=== PATIENT | female | born 1985 | race Caucasian/White ===

== ENCOUNTER → 2018-01-14 12:06 | Outpatient (CLI) | payer OTHER, MEDICAID, SELFPAY ==
--- NOTE | 2018-01-14 12:09 | DI.RAD.S_ITS ---
PROCEDURE: XR ANKLE LT MIN 3V INDICATIONS: left ankle injury TECHNIQUE: 3 views of the ankle were acquired. COMPARISON: None. FINDINGS: Bones: No fractures or dislocations. Ankle mortise is normally aligned. No suspicious bony lesions. Soft tissues: Prominent lateral soft tissue swelling. No tibiotalar joint effusion. Achilles tendon appears normal. IMPRESSION: Lateral swelling, negative for fracture Dictated by: Jose Wood M.D. on 01/14/2018 at 12:28 Approved by: Jose Wood M.D. on 01/14/2018 at 12:29
--- NOTE | 2018-01-14 12:09 | DI.RAD.S_ITS ---
PROCEDURE: XR FOOT LT MIN 3V INDICATIONS: lateral toe bruising and pain TECHNIQUE: 3 views of the foot were acquired. COMPARISON: None. FINDINGS: Bones: No fractures or dislocations. No suspicious bony lesions. Soft tissues: No tibiotalar joint effusion. Achilles tendon appears normal. IMPRESSION: Normal foot Dictated by: Jose Wood M.D. on 01/14/2018 at 12:29 Approved by: Jose Wood M.D. on 01/14/2018 at 12:30
== END ==
PROVIDERS: Family Provider Family Medicine; PCP Family Medicine; Visit Provider Family Medicine
DX: S99.912A Unspecified injury of left ankle, initial encounter (principal)
CPT/HCPCS: 73610; 73630

== ENCOUNTER → 2018-02-08 10:20 | Outpatient (CLI) | payer OTHER, MEDICAID, SELFPAY ==
--- NOTE | 2018-02-08 10:21 | DI.RAD.S_ITS ---
PROCEDURE: XR ELBOW LT MIN 3V INDICATIONS: left elbow pain TECHNIQUE: 3 views of the elbow were acquired. COMPARISON: None. FINDINGS: Bones: No fractures or dislocations. No suspicious bony lesions. Soft tissues: No elbow joint effusion. No suspicious soft tissue calcifications. IMPRESSION: No acute fractures or dislocations. Dictated by: Kj Perez M.D. on 02/08/2018 at 11:25 Approved by: Kj Perez M.D. on 02/08/2018 at 11:25
== END ==
PROVIDERS: Family Provider Family Medicine; PCP Family Medicine; Visit Provider Family Medicine
DX: M25.522 Pain in left elbow (principal)
CPT/HCPCS: 73080

== ENCOUNTER → 2018-04-11 16:05 | Outpatient (CLI) | payer OTHER, MEDICAID, SELFPAY ==
[2018-04-14 14:11] LABS: QuantiFERON TB Positive (Negative)
== END ==
PROVIDERS: Family Provider Family Medicine; PCP Family Medicine; Visit Provider Family Medicine
DX: Z02.1 Encounter for pre-employment examination (principal); Z11.1 Encounter for screening for respiratory tuberculosis
CPT/HCPCS: 36415; 86480

== ENCOUNTER → 2018-04-17 17:01 | Outpatient (CLI) | payer OTHER, MEDICAID, SELFPAY ==
--- NOTE | 2018-04-17 17:03 | DI.RAD.S_ITS ---
PROCEDURE: XR CHEST 2V INDICATIONS: Positive Quantifuron Gold TECHNIQUE: 2 views of the chest were acquired. COMPARISON: [facility], , CHEST 1 VIEW, 08/13/2015, 6:27. FINDINGS: Surgical changes and devices: None. Lungs and pleura: No pleural effusions or pneumothorax. Lungs are clear. Mediastinum: Mediastinal contours are normal. Heart size is normal. Bones and chest wall: No suspicious bony abnormalities. Soft tissues appear unremarkable. IMPRESSION: No acute cardiopulmonary pathology. No radiographic evidence of active TB. Dictated by: Didier Whitten M.D. on 04/17/2018 at 17:18 Approved by: Ddiier Whitten M.D. on 04/17/2018 at 17:19
== END ==
PROVIDERS: Family Provider Family Medicine; PCP Family Medicine; Visit Provider Family Medicine
DX: R76.11 Nonspecific reaction to tuberculin skin test without active tuberculosis (principal)
CPT/HCPCS: 71046

== ENCOUNTER → 2018-05-24 13:55 | Outpatient (CLI) | payer OTHER, MEDICAID, SELFPAY ==
[2018-05-24 18:36] LABS: Hepatitis B Surface Antigen NEGATIVE s/c (NEGATIVE); Rubella Antibody IgG 16.4 IU/mL (>15)
[2018-05-28 15:33] LABS: Rubeola Measles IgG < 25.00 AU/mL (< 25.00)
== END ==
PROVIDERS: PCP Family Medicine; Visit Provider Family Medicine
DX: Z00.00 Encounter for general adult medical examination without abnormal findings (principal)
CPT/HCPCS: 36415; 86735; 86762; 86765; 87340

== ENCOUNTER → 2018-07-26 12:10 | Outpatient (CLI) | payer OTHER, MEDICAID, SELFPAY ==
[2018-07-26 13:33] LABS: Monotest Negative (Negative)
== END ==
PROVIDERS: Family Provider Family Medicine; PCP Family Medicine; Visit Provider Physician Assistant
DX: J02.9 Acute pharyngitis, unspecified (principal)
CPT/HCPCS: 86318; 87070; 87147

== ENCOUNTER 2018-10-22 01:57 | Emergency (ER) | payer OTHER, MEDICAID, SELFPAY ==
[2018-10-22 02:25] VITALS: BP 157/90; PULSE 147; RESP 23; TEMP 38.7; O2SAT 100; BMI 43.5
[2018-10-22 02:30] VITALS: BP 116/60; PULSE 101; RESP 20; O2SAT 100
--- NOTE | 2018-10-22 02:36 | ED_ITS ---
HPI - Arrhythmia/Palpitations General Chief Complaint: Arrhythmia/Palpitations Stated Complaint: 105 temp, svt heart rate 130 bpm Time Seen by Provider: 10/22/18 02:31 Source: patient Mode of arrival: ambulatory Limitations: no limitations History of Present Illness HPI narrative: patient is a artem 32-year-old female who presents with heart palpitations. She has a history of SVT. She previously could not get warm a. She said she was chilled his shivering called multiple blankets on top of her. As she then woke up drenching sweat with fever 105 at home. She did take some Tylenol. She is afebrile now. MD complaint: rapid heart beat Arrhythmia history: SVT Associated symptoms: other ( Fever) Related Data Home Medications Medication Instructions Recorded Confirmed atenolol 25 mg PO BID #0 04/13/17 07/26/18 Previous Rx's Medication Instructions Recorded alprazolam 0 mg PO Q12HP PRN #20 tab 08/15/17 levothyroxine [Synthroid] 50 mcg PO SEE INSTRUCTIONS #90 tab 07/23/18 albuterol sulfate HFA 90 1 inh INHALATION Q4-6H PRN #18 gram 07/26/18 mcg/actuation aerosol inhaler azithromycin 250 mg tablet See Rx Instructions PO .COMPLEX #6 07/26/18 tab metformin 500 mg tablet 500 mg PO BID #180 tab 09/23/18 citalopram 10 mg tablet 10 mg PO QDAY #30 tab 10/16/18 Allergies Allergy/AdvReac Type Severity Reaction Status Date / Time amoxicillin AdvReac does not Verified 07/26/18 11:15 work Review of Systems Review of Systems ROS Unobtainable: All systems reviewed & are unremarkable except as noted in HPI and below Constitutional Reports body ache(s), Reports chills, Reports fever(s) and Denies frequent falls ENT Ears, Nose, Mouth, and Throat: Denies change in voice, Denies dizziness, Denies neck pain and Denies sore throat Cardiovascular Denies chest pain, Reports rapid heart rate, Denies lightheadedness, Denies palpitations, Denies dyspnea, Denies dyspnea on exertion and Denies orthopnea Respiratory Denies cough, Denies dyspnea, Denies dyspnea on exertion and Denies wheezing Gastrointestinal Gastrointestinal: Denies abdominal pain, Denies change in bowel habits, Denies diarrhea, Denies nausea and Denies vomiting Musculoskeletal Denies neck pain and Denies numbness Integumentary/Breasts Denies pruritus, Denies erythema, Denies rash and Denies wounds Neurologic Denies behavioral changes, Denies confusion, Denies dizziness, Denies frequent falls and Denies numbness Psychiatric Denies behavioral changes and Denies confusion Endocrine Denies palpitations Allergic/Immunologic Denies wheezing FOR[facility] Medical History Inversion sprain of left ankle (Acute) Diabetes mellitus (Chronic) Hypertension (Chronic) Near syncope (Chronic) Palpitations (Chronic) Wheezing (Chronic) Ktblk-Jufzcqyga-Owwfg (WPW) syndrome (Chronic) Surgical History History of third molar tooth extraction Status post laparoscopic cholecystectomy Family History Child Autism Social History Smoking Status: Never smoker alcohol intake: never Family History Child Autism Social History Smoking Status: Never smoker alcohol intake: 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 RESPIRATORY: Breath sounds equal bilaterally, no wheezes rales or rhonchi. ABDOMEN: Soft, nontender. Normoactive bowel sounds all 4 quadrants. No guarding or rebound. EXTREMITIES: Normal range of motion, no clubbing or edema. Neurovascularly intact NEUROLOGICAL: Alert and oriented x4.Normal gait and speech. Cranial nerves II through XII grossly intact. SKIN: Warm, dry, no laceration, no petechiae, no rashes or lesions. Course Orders Ordered: ED Orders 10/22/18 EKG-12 Lead Stat 10/22/18 02:15 Complete Blood Count AUTO DIFF Stat Comprehensive Metabolic Panel Stat Lactate (Lactic Acid) Stat 10/22/18 02:31 EKG-12 Lead Stat 10/22/18 02:37 Influenza A and B by PCR Rapid Stat 10/22/18 03:57 Urine Microscopic Stat Discontinued Medications Sodium Chloride (Normal Saline 0.9%) 1,000 mls @ 1,000 mls/hr IV CONT BOBBY Last Infusion: 10/22/18 04:45 Dose: 0 mls/hr Admin: 10/22/18 02:45 Dose: 1,000 mls/hr Vital Signs - 8 hr 10/22/18 02:25 10/22/18 02:30 10/22/18 02:40 Temperature 101.6 F H Pulse Rate 147 H 101 H 105 H Respiratory Rate 23 20 19 Blood Pressure 157/90 H Blood Pressure [Right Arm] 116/60 116/60 Pulse Oximetry 100 100 98 10/22/18 03:26 10/22/18 03:39 10/22/18 04:50 Temperature 99.9 F H Pulse Rate 102 H 102 H Respiratory Rate 19 20 Blood Pressure 108/60 Blood Pressure [Right Arm] 112/65 Pulse Oximetry 100 100 MDM - Arrhythmia/Palpitations Lab Data Attestation: I reviewed the patient's lab results. Result diagrams: 10/22/18 02:15 10/22/18 02:15 Lab Results 10/22/18 10/22/18 10/22/18 Range/Units 02:15 02:15 02:15 WBC 6.1 (4.5-11.0) X10^3/uL RBC 4.52 (4.0-5.2) X10^6/uL Hgb 12.9 (12.0-16.0) g/dL Hct 38.7 (36-46) % MCV 85.6 (80-100) fL MCH 28.5 (26-34) PG MCHC 33.2 (30-36) % RDW 13.5 (11.6-14.8) % Plt Count 215 (150-400) X10^3/uL Neut % (Auto) 83.5 H (50-75) % Lymph % (Auto) 9.0 L (25-40) % Cache % (Auto) 6.3 (3-14) % Eos % (Auto) 0.7 L (2-4) % Baso % (Auto) 0.5 (0-2) % Neut # (Auto) 5100 (3482-3066) /uL Lymph # (Auto) 600 L (0645-3034) /uL Cache # (Auto) 400 (0-900) /uL Eos # (Auto) 0 (0-450) /uL Baso # (Auto) 0 (0-100) /uL Sodium 134 L (137-145) mmol/L Potassium 4.1 (3.4-5.1) mmol/L Chloride 101 (98-107) mmol/L Carbon Dioxide 24 (22-32) mmol/L BUN 8 (7-17) mg/dL Creatinine 0.70 (0.52-1.04) mg/dL Estimated GFR > 60.0 (>60) mL/min BUN/Creatinine Ratio 11.4 (6-22) Glucose 126 H (70-100) mg/dL Lactate 1.9 (0.7-2.1) mmol/L Calcium 9.0 (8.4-10.2) mg/dL Total Bilirubin 0.5 (0.2-1.3) mg/dL AST 35 (14-36) IU/L ALT 28 (9-52) IU/L Alkaline Phosphatase 68 (38-126) U/L Total Protein 7.5 (6.3-8.2) g/dL Albumin 4.2 (3.5-5.0) g/dL Globulin 3.3 (1.7-4.1) g/dL Albumin/Globulin Ratio 1.3 (1.0-2.8) Urine RBC (0-5/HPF) Urine WBC (0-5/HPF) Ur Squamous Epith Cells Urine Bacteria (None) Ur Culture Indicated? Influenza A & B (PCR) (Negative) 10/22/18 10/22/18 Range/Units 02:37 03:57 WBC (4.5-11.0) X10^3/uL RBC (4.0-5.2) X10^6/uL Hgb (12.0-16.0) g/dL Hct (36-46) % MCV (80-100) fL MCH (26-34) PG MCHC (30-36) % RDW (11.6-14.8) % Plt Count (150-400) X10^3/uL Neut % (Auto) (50-75) % Lymph % (Auto) (25-40) % Cache % (Auto) (3-14) % Eos % (Auto) (2-4) % Baso % (Auto) (0-2) % Neut # (Auto) (0878-2020) /uL Lymph # (Auto) (8995-9033) /uL Cache # (Auto) (0-900) /uL Eos # (Auto) (0-450) /uL Baso # (Auto) (0-100) /uL Sodium (137-145) mmol/L Potassium (3.4-5.1) mmol/L Chloride (98-107) mmol/L Carbon Dioxide (22-32) mmol/L BUN (7-17) mg/dL Creatinine (0.52-1.04) mg/dL Estimated GFR (>60) mL/min BUN/Creatinine Ratio (6-22) Glucose (70-100) mg/dL Lactate (0.7-2.1) mmol/L Calcium (8.4-10.2) mg/dL Total Bilirubin (0.2-1.3) mg/dL AST (14-36) IU/L ALT (9-52) IU/L Alkaline Phosphatase (38-126) U/L Total Protein (6.3-8.2) g/dL Albumin (3.5-5.0) g/dL Globulin (1.7-4.1) g/dL Albumin/Globulin Ratio (1.0-2.8) Urine RBC 1-5/hpf (0-5/HPF) Urine WBC 0-1/hpf (0-5/HPF) Ur Squamous Epith Cells 1-5 /hpf Urine Bacteria Few (2-10) H (None) Ur Culture Indicated? Cult not indicated Influenza A & B (PCR) Negative (Negative) Point of Care Testing Test Results Negative Urine Dip Bedside Urine Glucose Negative Bedside Urine Bilirubin - Negative Bedside Urine Ketone - Negative Urine Specific [place]iskell 1.010 Bedside Urine Occult Blood + Bedside Urine pH 8.5 Bedside Urine Protein +/- 15 Bedside Urine Urobilinogen - Negative Bedside Urine Nitrite - Negative Bedside Urine Leukocytes - Negative Esterase MDM Narrative Medical decision making narrative: At this time no source of infection. Patient is not in SVT. Heart rate is much improved With fever control and IV fluids. She does not appear septic. Lactic acid is less than 2. she has no specific signs or symptoms except being cold. Discharge Plan Departure Patient Disposition: Home Clinical Impression: Acute viral syndrome Discharge Date/Time: 10/22/18 04:52 Interventions: ED Discharge Assessment Last Done: 10/22/18 04:50 Activity Restrictions/Additional Instructions: *You have been diagnosed with Viral syndrome *What to do: at this time in no source of infection. No indication for antibiotics. No SVT present. recommend fever control in the fluid increasing fluid intake *Continue to take medications as directed *Follow up with your primary care provider in 2-3 days *Return to ER if you should have heart palpitations fever not controlled or any new, worsening or concerning symptoms Prescriptions: No Action azithromycin 250 mg tablet See Rx Instructions PO .COMPLEX Qty: 6 RF: 0 albuterol sulfate 90 mcg/actuation HFA aerosol inhaler 1 inh INHALATION Q4-6H PRN (Reason: shortness of breath) Qty: 18 RF: 0 atenolol 25 MG tablet 25 mg PO BID Qty: 0 RF: 0 alprazolam 0.25 MG tablet PO Q12HP PRNQty: 20 RF: 2 levothyroxine [Synthroid] 50 mcg tablet 50 mcg PO SEE INSTRUCTIONS Qty: 90 RF: 0 metformin [Glucophage] 500 mg tablet 500 mg PO BID Qty: 180 RF: 3 citalopram [Celexa] 10 mg tablet 10 mg PO QDAY Qty: 30 RF: 2 Referrals: Jelena Borden DO [Primary Care Provider] -
[2018-10-22 02:38] LABS: Add Manual Diff / Slide Review NO; Basophils Absolute Auto 0 /uL (0-100); Basophils Percent Auto 0.5 % (0-2); Eosinophils Absolute Auto 0 /uL (0-450); Eosinophils Percent Auto 0.7 % (2-4); Hematocrit 38.7 % (36-46); Hemoglobin 12.9 g/dL (12.0-16.0); Lymphocytes Absolute Auto 600 /uL (1100-4500); Mean Corpuscular HGB Conc 33.2 % (30-36); Mean Corpuscular Hemoglobin 28.5 PG (26-34); Mean Corpuscular Volume 85.6 fL (80-100); Monocytes Absolute Auto 400 /uL (0-900); Monocytes Percent Auto 6.3 % (3-14); Neutrophils Absolute Auto 5100 /uL (1500-7000); Neutrophils Percent Auto 83.5 % (50-75); Platelet Count 215 X10^3/uL (150-400); Red Blood Cell Count 4.52 X10^6/uL (4.0-5.2); Red Cell Distribution Width 13.5 % (11.6-14.8); White Blood Cell Count 6.1 X10^3/uL (4.5-11.0)
[2018-10-22 02:40] VITALS: BP 116/60; PULSE 105; RESP 19; O2SAT 98
[2018-10-22] MEDS: SODIUM CHLORIDE 0.9% 1,000 ML 1000 ML IV (02:45)
[2018-10-22 02:50] LABS: Lactate (Lactic Acid) 1.9 mmol/L (0.7-2.1)
[2018-10-22 02:51] LABS: Alanine Aminotransferase 28 IU/L (9-52); Albumin 4.2 g/dL (3.5-5.0); Albumin Globulin Ratio 1.3 (1.0-2.8); Alkaline Phosphatase 68 U/L (38-126); Aspartate Aminotransferase 35 IU/L (14-36); BUN Creatinine Ratio 11.4 (6-22); Bilirubin Total 0.5 mg/dL (0.2-1.3); Blood Urea Nitrogen 8 mg/dL (7-17); Carbon Dioxide 24 mmol/L (22-32); Chloride 101 mmol/L (98-107); Estimated Glomerular Filt Rate > 60.0 mL/min (>60); Globulin 3.3 g/dL (1.7-4.1); Glucose 126 mg/dL (70-100); HEMOLYSIS < 15 (0-50); Potassium 4.1 mmol/L (3.4-5.1); Sodium 134 mmol/L (137-145); Total Protein 7.5 g/dL (6.3-8.2)
[2018-10-22 02:56] LABS: Influenza A and B by PCR Rapid Negative (Negative)
[2018-10-22 03:26] VITALS: BP 112/65; PULSE 102; RESP 19; O2SAT 100
[2018-10-22 03:39] VITALS: TEMP 37.7
[2018-10-22 04:26] LABS: Bacteria Urine Few (2-10); Culture Indicated Urine Cult Not Indicated; RBC Urine 1-5/HPF (0-5/HPF); Squamous Epithelial Cell Urine 1-5 /HPF; WBC Urine 0-1/HPF (0-5/HPF)
[2018-10-22 04:50] VITALS: BP 108/60; PULSE 102; RESP 20; O2SAT 100
== END 2018-10-22 04:52 | disposition home or self-care (01) ==
PROVIDERS: Emergency Provider Emergency Medicine; Family Provider Family Medicine; PCP Family Medicine
DX: B34.9 Viral infection, unspecified (principal); R00.2 Palpitations
CPT/HCPCS: 36591; 80053; 81003; 81015; 81025; 83605; 85025; 87400; 93005; 93041; 96360; 96361; 99283; 99284

== ENCOUNTER → 2018-11-30 08:47 | Outpatient (CLI) | payer OTHER, MEDICAID, SELFPAY ==
[2018-11-30 09:42] LABS: Add Manual Diff / Slide Review NO; Basophils Absolute Auto 0 /uL (0-100); Basophils Percent Auto 0.6 % (0-2); Eosinophils Absolute Auto 400 /uL (0-450); Eosinophils Percent Auto 5.8 % (2-4); Hematocrit 36.3 % (36-46); Hemoglobin 12.3 g/dL (12.0-16.0); Lymphocytes Absolute Auto 2000 /uL (1100-4500); Lymphocytes Percent Auto 31.6 % (25-40); Mean Corpuscular HGB Conc 33.8 % (30-36); Mean Corpuscular Hemoglobin 28.8 PG (26-34); Mean Corpuscular Volume 85.4 fL (80-100); Monocytes Absolute Auto 400 /uL (0-900); Monocytes Percent Auto 6.3 % (3-14); Neutrophils Absolute Auto 3500 /uL (1500-7000); Neutrophils Percent Auto 55.7 % (50-75); Platelet Count 255 X10^3/uL (150-400); Red Blood Cell Count 4.25 X10^6/uL (4.0-5.2); Red Cell Distribution Width 13.6 % (11.6-14.8); White Blood Cell Count 6.3 X10^3/uL (4.5-11.0)
[2018-11-30 09:46] LABS: Alanine Aminotransferase 18 IU/L (9-52); Albumin 4.1 g/dL (3.5-5.0); Albumin Globulin Ratio 1.4 (1.0-2.8); Alkaline Phosphatase 54 U/L (38-126); Aspartate Aminotransferase 18 IU/L (14-36); BUN Creatinine Ratio 23.3 (6-22); Bilirubin Total 0.3 mg/dL (0.2-1.3); Blood Urea Nitrogen 14 mg/dL (7-17); Carbon Dioxide 23 mmol/L (22-32); Chloride 104 mmol/L (98-107); Cholesterol 201 mg/dL (140-199); Estimated Glomerular Filt Rate > 60.0 mL/min (>60); Globulin 2.9 g/dL (1.7-4.1); Glucose 94 mg/dL (70-100); HDL Cholesterol 42 mg/dL (40-60); HEMOLYSIS < 15 (0-50); LDL Cholesterol Calculated 124 mg/dL (<100); Potassium 4.5 mmol/L (3.4-5.1); Sodium 136 mmol/L (137-145); Triglycerides 174 mg/dL (35-150)
[2018-11-30 09:59] LABS: Hemoglobin A1C% w Est Avg Glu 5.5 % (4.0-6.0)
[2018-11-30 11:36] LABS: TSH w/ Reflex to FT4 2.16 uIU/mL (0.47-4.68)
[2018-12-03 15:52] LABS: Insulin Level Total 11.2 uIU/mL (2.0-19.6)
== END ==
PROVIDERS: Family Provider Family Medicine; PCP Family Medicine; Visit Provider Family Medicine
DX: E03.9 Hypothyroidism, unspecified (principal); E66.9 Obesity, unspecified; I49.3 Ventricular premature depolarization; I10 Essential (primary) hypertension; R73.9 Hyperglycemia, unspecified; Z13.1 Encounter for screening for diabetes mellitus; Z13.220 Encounter for screening for lipoid disorders
CPT/HCPCS: 36415; 80053; 80061; 83036; 83525; 84443; 85025

== ENCOUNTER → 2018-12-02 09:43 | Outpatient (CLI) | payer OTHER, MEDICAID, SELFPAY ==
[2018-12-02 11:56] LABS: Cortisol AM (Before 10AM) 7.26 ug/dL (4.46-22.7)
[2018-12-02 19:54] LABS: Cortisol PM (After 5PM) 4.08 ug/dL (1.7-14.1)
== END ==
PROVIDERS: PCP Family Medicine; Visit Provider Family Medicine
DX: E03.9 Hypothyroidism, unspecified (principal); I10 Essential (primary) hypertension; I49.3 Ventricular premature depolarization; R73.9 Hyperglycemia, unspecified; Z13.1 Encounter for screening for diabetes mellitus; Z13.220 Encounter for screening for lipoid disorders; E66.9 Obesity, unspecified
CPT/HCPCS: 36415; 82533

== ENCOUNTER → 2019-07-14 12:11 | Outpatient (CLI) | payer OTHER, MEDICAID, SELFPAY | PROVIDERS: PCP Family Medicine | DX: Z23 Encounter for immunization (principal) | CPT/HCPCS: 90471; 90686 ==

== ENCOUNTER → 2019-07-15 17:24 | Outpatient (CLI) | payer OTHER, MEDICAID, SELFPAY ==
[2019-07-15 18:16] LABS: Add Manual Diff / Slide Review NO; Basophils Absolute Auto 0 /uL (0-100); Basophils Percent Auto 0.6 % (0-2); Eosinophils Absolute Auto 400 /uL (0-450); Eosinophils Percent Auto 5.3 % (2-4); Hematocrit 38.3 % (36-46); Hemoglobin 12.7 g/dL (12.0-16.0); Lymphocytes Absolute Auto 2500 /uL (1100-4500); Lymphocytes Percent Auto 36.3 % (25-40); Mean Corpuscular Hemoglobin 28.7 PG (26-34); Monocytes Absolute Auto 400 /uL (0-900); Monocytes Percent Auto 5.8 % (3-14); Neutrophils Absolute Auto 3600 /uL (1500-7000); Platelet Count 291 X10^3/uL (150-400); Red Cell Distribution Width 13.9 % (11.6-14.8); White Blood Cell Count 6.9 X10^3/uL (4.5-11.0)
[2019-07-15 18:45] LABS: Free T3, Triiodothyronine Free 3.37 pg/mL (2.77-5.27); Free T4, Direct Thyroxine 1.04 ng/dL (0.78-2.19)
== END ==
PROVIDERS: Visit Provider Family Medicine
DX: E03.9 Hypothyroidism, unspecified (principal); E66.9 Obesity, unspecified; I10 Essential (primary) hypertension; I49.3 Ventricular premature depolarization
CPT/HCPCS: 36415; 84439; 84443; 84481; 85025

== ENCOUNTER → 2020-05-27 15:00 | Outpatient (CLI) | payer OTHER, MEDICAID, SELFPAY ==
[2020-05-28 08:50] LABS: COVID19 Sendout Not Detected (Not Detect)
== END ==
PROVIDERS: PCP Family Medicine; Visit Provider Physician Assistant
DX: Z11.59 Encounter for screening for other viral diseases (principal)
CPT/HCPCS: 87635

== ENCOUNTER → 2020-07-14 14:14 | Outpatient (CLI) | payer OTHER, SELFPAY ==
--- NOTE | 2020-07-14 15:30 | DI.CT.S_ITS ---
PROCEDURE: CT ABDOMEN PELVIS W CON INDICATIONS: LLQ pain and bloody stool TECHNIQUE: After the administration of oral and intravenous contrast, 5 mm thick sections acquired from the diaphragms to the symphysis. 5 mm thick coronal and sagittal reformats were performed. For radiation dose reduction, the following was used: automated exposure control, adjustment of mA and/or kV according to patient size. COMPARISON: [facility], CT, ABDOMEN/PELVIS WITH CONTRAST, 11/20/2012, 13:32. FINDINGS: Image quality: Excellent. ABDOMEN: Lung bases: Lung bases are clear. Heart size is normal. Solid organs: Liver is normal in size and enhancement. Gallbladder is surgically absent . Biliary system is non-dilated. Pancreas enhances normally. Spleen is normal in size and enhancement. No right adrenal nodules. There is and increased, low-density left adrenal nodule with postcontrast Hounsfield units of 22. No right adrenal nodule. Kidneys are normal in size and enhancement, without hydronephrosis. Peritoneum and bowel: Stomach, small bowel, and colon loops are normal in caliber and wall thickness. No free fluid or air. Normal appendix. Nodes and vessels: No retroperitoneal or mesenteric adenopathy. Aorta and inferior vena cava are normal in caliber. Miscellaneous: No ventral hernias. PELVIS: Genitourinary: Bladder wall thickness is normal. Miscellaneous: No inguinal hernias or adenopathy. Bones: No suspicious bony lesions. No vertebral body compression fractures. IMPRESSION: 1. No acute process. 2. Normal appendix. 3. Increased, indeterminate left adrenal nodule. Initial further assessment with Dictated by: Mikey Marcelino M.D. on 07/14/2020 at 16:01 Approved by: Mikey Marcelino M.D. on 07/14/2020 at 16:04
== END ==
PROVIDERS: PCP Family Medicine; Referring Provider Family Medicine; Visit Provider Family Medicine
DX: R10.32 Left lower quadrant pain (principal); K92.1 Melena; E27.9 Disorder of adrenal gland, unspecified
CPT/HCPCS: 74177; Q9967

== ENCOUNTER → 2020-07-16 11:37 | Outpatient (CLI) | payer OTHER, SELFPAY ==
[2020-07-16 14:28] LABS: Add Manual Diff / Slide Review NO; Basophils Absolute Auto 0 /uL (0-100); Basophils Percent Auto 0.6 % (0-2); Eosinophils Absolute Auto 300 /uL (0-450); Eosinophils Percent Auto 4.8 % (2-4); Hematocrit 34.5 % (36-46); Hemoglobin 11.6 g/dL (12.0-16.0); Lymphocytes Absolute Auto 2100 /uL (1100-4500); Lymphocytes Percent Auto 33.9 % (25-40); Mean Corpuscular HGB Conc 33.5 % (30-36); Mean Corpuscular Hemoglobin 29.2 PG (26-34); Mean Corpuscular Volume 87.2 fL (80-100); Monocytes Absolute Auto 400 /uL (0-900); Monocytes Percent Auto 6.4 % (3-14); Neutrophils Absolute Auto 3400 /uL (1500-7000); Neutrophils Percent Auto 54.3 % (50-75); Platelet Count 239 X10^3/uL (150-400); Red Blood Cell Count 3.96 X10^6/uL (4.0-5.2); White Blood Cell Count 6.2 X10^3/uL (4.5-11.0)
[2020-07-16 15:04] LABS: Alanine Aminotransferase 28 IU/L (<35); Albumin Globulin Ratio 1.3 (1.0-2.8); Alkaline Phosphatase 75 U/L (38-126); Aspartate Aminotransferase 25 IU/L (14-36); BUN Creatinine Ratio 22.4 (6-22); Bilirubin Total 0.3 mg/dL (0.2-1.3); Blood Urea Nitrogen 13 mg/dL (7-17); Calcium 8.8 mg/dL (8.4-10.2); Carbon Dioxide 28 mmol/L (22-32); Chloride 107 mmol/L (98-107); Cholesterol 205 mg/dL (140-199); Estimated Glomerular Filt Rate > 60.0 mL/min (>60); Globulin 3.1 g/dL (1.7-4.1); Glucose 83 mg/dL (70-100); HDL Cholesterol 36 mg/dL (40-60); HEMOLYSIS < 15 (0-50); LDL Cholesterol Calculated 141 mg/dL (<100); Potassium 3.9 mmol/L (3.4-5.1); Sodium 138 mmol/L (137-145); Total Protein 7.1 g/dL (6.3-8.2); Triglycerides 142 mg/dL (35-150)
[2020-07-16 15:40] LABS: TSH w/ Reflex to FT4 2.27 uIU/mL (0.47-4.68)
== END ==
PROVIDERS: PCP Family Medicine; Referring Provider Family Medicine; Visit Provider Family Medicine
DX: E03.9 Hypothyroidism, unspecified (principal); E66.9 Obesity, unspecified; I10 Essential (primary) hypertension; R73.01 Impaired fasting glucose; Z13.1 Encounter for screening for diabetes mellitus; Z13.220 Encounter for screening for lipoid disorders
CPT/HCPCS: 36415; 80053; 80061; 84443; 85025

== ENCOUNTER → 2020-07-24 10:34 | Outpatient (CLI) | payer OTHER, SELFPAY ==
[2020-07-24 11:38] LABS: Add Manual Diff / Slide Review NO; Basophils Absolute Auto 0 /uL (0-100); Basophils Percent Auto 0.8 % (0-2); Eosinophils Absolute Auto 200 /uL (0-450); Eosinophils Percent Auto 4.1 % (2-4); Hematocrit 34.8 % (36-46); Hemoglobin 11.5 g/dL (12.0-16.0); Lymphocytes Absolute Auto 1800 /uL (1100-4500); Lymphocytes Percent Auto 32.1 % (25-40); Mean Corpuscular Hemoglobin 28.7 PG (26-34); Mean Corpuscular Volume 87.2 fL (80-100); Monocytes Absolute Auto 400 /uL (0-900); Monocytes Percent Auto 6.3 % (3-14); Neutrophils Absolute Auto 3200 /uL (1500-7000); Neutrophils Percent Auto 56.7 % (50-75); Platelet Count 283 X10^3/uL (150-400); Red Blood Cell Count 3.99 X10^6/uL (4.0-5.2); Red Cell Distribution Width 13.8 % (11.6-14.8); White Blood Cell Count 5.7 X10^3/uL (4.5-11.0)
[2020-07-24 12:12] LABS: Glucose Fasting 96 mg/dL (70-100)
[2020-07-24 13:05] LABS: Glucose Tol Interpretation INTERPRETATION
[2020-07-24 13:27] LABS: Glucose 1 Hour 161 mg/dL (70-170)
[2020-07-24 13:28] LABS: Glucose 2 Hour 88 mg/dL (70-140)
== END ==
PROVIDERS: PCP Family Medicine; Referring Provider Family Medicine; Visit Provider Family Medicine
DX: R73.01 Impaired fasting glucose (principal); D64.9 Anemia, unspecified; R10.32 Left lower quadrant pain
CPT/HCPCS: 36415; 82951; 82952; 83525; 85025

== ENCOUNTER → 2020-08-04 12:01 | Outpatient (CLI) | payer OTHER, SELFPAY ==
--- NOTE | 2020-08-04 12:03 | DI.MRI.S_ITS ---
PROCEDURE: MR ABDOMEN WO CON INDICATIONS: left adreanl nodule TECHNIQUE: Coronal HASTE, axial 2-D FLASH in- and [id number] with subtractions from the hepatic dome to the iliac crests. COMPARISON: [facility], CT, CT ABDOMEN PELVIS W CON, 07/14/2020, 15:07. [facility], CT, CT ABD PELVIS WO CON, 08/10/2015, 15:36. FINDINGS: Image quality: Excellent. Adrenal glands: Left adrenal nodule measuring 2.1 x 1.8 cm, (4/63). There is signal dropout on the opposed phase images, (4/19). Findings consistent with a benign adrenal adenoma. No nodule on the right. Other solid organs: Liver is normal in overall size. No significant steatosis. Gallbladder is absent . Biliary system is non dilated. Pancreas is normal in morphology. Spleen is normal in size. Both kidneys are normal in size, without hydronephrosis. Nodes and vessels: No retroperitoneal or mesenteric adenopathy by size criteria. Aorta and inferior vena cava are normal in size. Bowel and peritoneum: Unenhanced bowel loops are normal in caliber. No free fluid. Lung bases: No basal pleural effusions. Heart size is normal. Bones and soft tissues: Tiny fat containing periumbilical hernia. Bone marrow is of normal overall signal. IMPRESSION: Left adrenal nodule measuring 2.1 cm is consistent with a benign adenoma. Dictated by: Sagar Bustamante M.D. on 08/04/2020 at 14:01 Approved by: Sagar Bustamante M.D. on 08/04/2020 at 14:05
== END ==
PROVIDERS: PCP Family Medicine; Referring Provider Family Medicine; Visit Provider Family Medicine
DX: E27.8 Other specified disorders of adrenal gland (principal)
CPT/HCPCS: 74181

== ENCOUNTER → 2020-08-16 11:37 | Outpatient (CLI) | payer OTHER, SELFPAY ==
[2020-08-16 12:17] LABS: COVID19 -Nasal RAPID Negative (Negative)
[2020-08-24 14:58] LABS: Renin Activity 1.566 ng/mL/hr (0.167-5.380)
== END ==
PROVIDERS: Surgery; PCP Family Medicine; Referring Provider Family Medicine; Visit Provider Family Medicine
DX: Z01.812 Encounter for preprocedural laboratory examination; D35.00 Benign neoplasm of unspecified adrenal gland; Z20.828 Contact with and (suspected) exposure to other viral communicable diseases
CPT/HCPCS: 36415; 82088; 84244; 87635; C9803

== ENCOUNTER 2020-08-17 12:02 | Day surgery (SDC) | payer OTHER, SELFPAY ==
[2020-08-17] VITALS (8 sets, daily range): BP systolic 114–155; BP diastolic 57–92; PULSE 60–80; RESP 12–18; TEMP 36.2–36.4; O2SAT 96–100; BMI 44.5
--- NOTE | 2020-08-17 | PATH_ITS ---
[facility] Accession Number: [id number] . 01 Material submitted: . colon - RANDOM COLON . 02 Diagnosis: Random Colon, Biopsy: Colonic mucosa with no diagnostic abnormality. Negative for active, chronic, and microscopic colitis. Negative for dysplasia and malignancy. . MRV 08/20/2020 1149 Local . 02 Electronically signed: . Malissa Varner MD, Pathologist NPI- [id number] . 01 Gross description: . RANDOM COLON: Received in formalin are 4 fragment(s) of loera, soft tissue measuring 0.7 x 0.3 x 0.1 cm to 0.3 x 0.3 x 0.1 cm submitted entirely in 1 cassette(s) /QBJ 08/18/2020 0812 Local . 02 Pathologist provided ICD-10: K92.2 . 02 CPT . 614138 Performed at: 01 [facility] [address] [facility], [place], [place] [id number] MD Cruzito Montgomery MD Phone: [phone] Performed at: 02 [facility] [address] [place], [place] [id number] MD Malissa Varner MD Phone: [phone]
[2020-08-17] MEDS: SODIUM CHLORIDE 0.9% 1,000 ML 200 ML IV (12:45)
--- NOTE | 2020-08-17 12:53 | PM.PREOP ---
Pre-operative Note COVID-19 COVID-19 status: Negative Result date/Date tested (Pos, Neg/Pending): 08/16/20 Interval Note History & Physical reviewed/Exam performed by Physician: Yes Changes to H&P: No ASA Class (for procedural sedation): III
--- NOTE | 2020-08-17 13:01 | PM.OP.ENDO ---
Operative Date/Time/Diagnoses Date of procedure: 08/17/20 Time of procedure: 13:01 Pre-op diagnosis: rectal bleeding Post-op diagnosis: other (No active source of rectal bleeding identified) Procedure & Clinicians Study performed: Colonoscopy Procedural sedation performed by the endoscopist Random biopsies of colon Same procedure as scheduled: Yes Indications: Rectal bleeding Surgeon: Bree Liang Procedure Notes SCOAP/Timeout: Performed Procedure in detail: The patient was brought to the room and placed in left lateral decubitus position with all bony prominences padded. A time-out was performed and then the patient was given procedural sedation starting with 4 mg of Versed and 100 mcg of fentanyl. A total of 11 mg of Versed and 250 micro g of fentanyl were given for the entire procedure. Vitals were monitored throughout the procedure and remained stable. Once adequately sedated, the procedure was begun. A rectal exam was performed revealing no abnormalities. The colonoscope was then introduced to the rectum and advanced to the cecum in the usual fashion. The cecum was identified by the appendiceal orifice, the mucosal tri-fold, and the ileocecal valve. The scope was then retracted while rotating side to side and examining each mucosal fold. No visible abnormalities were seen in the colon, specifically no polyps or masses, and no specific source of bleeding. Random biopsies were taken throughout the colon to rule out microscopic colitis. At the conclusion of the procedure retroflexion was performed and grade 2 internal hemorrhoids without stigmata of bleeding were seen. The scope was then withdrawn from the rectum the procedure was concluded. The patient tolerated the procedure well and was transferred to the PACU in stable condition. Scope withdrawal time: 10 Sedation minutes: 27 Specimen(s): other (Random biopsy) Complications: none Impression: No specific source of bleeding was found. Internal hemorrhoids considered most likely source, but not currently bleeding no stigmata of recent bleeding. Post-procedure Recommendations: Colonscopy in 10 years (As clinically indicated) and Will call with biopsy results Follow up: as needed Disposition: PACU
[2020-08-17] MEDS: MIDAZOLAM 5 MG/5 ML VIAL IV (13:31)
[2020-08-17] MEDS: fentaNYL 250 MCG/5 ML INJ IV (13:31)
== END 2020-08-17 14:34 | disposition home or self-care (01) ==
PROVIDERS: PCP Family Medicine; Referring Provider Surgery; Visit Provider Surgery
PROC: 0DJD8ZZ Inspection of Lower Intestinal Tract, Via Natural or Artificial Opening Endoscopic (ICD-10-PCS; CPT 45378; principal; 2020-08-17 13:00)
DX: K62.5 Hemorrhage of anus and rectum (principal); E66.01 Morbid (severe) obesity due to excess calories; Z68.42 Body mass index [BMI] 45.0-49.9, adult; J45.20 Mild intermittent asthma, uncomplicated; E03.9 Hypothyroidism, unspecified; I10 Essential (primary) hypertension; I45.6 Pre-excitation syndrome; K64.1 Second degree hemorrhoids
CPT/HCPCS: 45380; 99152; 99153; J2250; J3010

== ENCOUNTER → 2020-10-13 12:16 | Outpatient (CLI) | payer OTHER, SELFPAY | PROVIDERS: PCP Family Medicine; Visit Provider Physician Assistant | DX: J02.9 Acute pharyngitis, unspecified (principal) | CPT/HCPCS: 87070; 87077; 87147 ==

== ENCOUNTER → 2021-01-13 13:57 | Outpatient (CLI) | payer OTHER, SELFPAY ==
[2021-01-13 18:35] LABS: Alanine Aminotransferase 17 IU/L (<35); Albumin 3.6 g/dL (3.5-5.0); Albumin Globulin Ratio 1.3 (1.0-2.8); Alkaline Phosphatase 64 U/L (38-126); Aspartate Aminotransferase 25 IU/L (14-36); BUN Creatinine Ratio 21.7 (6-22); Bilirubin Total 0.1 mg/dL (0.2-1.3); Blood Urea Nitrogen 13 mg/dL (7-17); Calcium 9.1 mg/dL (8.4-10.2); Carbon Dioxide 26 mmol/L (22-32); Chloride 103 mmol/L (98-107); Estimated Glomerular Filt Rate > 60.0 mL/min (>60); Globulin 2.7 g/dL (1.7-4.1); Glucose 96 mg/dL (70-100); HEMOLYSIS < 15 (0-50); Potassium 4.2 mmol/L (3.4-5.1); Sodium 136 mmol/L (137-145); Total Protein 6.3 g/dL (6.3-8.2)
[2021-01-13 18:43] LABS: HCG Quantitative /Beta subunit < 2.4 mIU/mL
[2021-01-13 19:36] LABS: Thyroid Stimulating Hormone 1.92 uIU/mL (0.47-4.68)
[2021-01-14 08:08] LABS: Insulin Level Total 10.4 uIU/mL (2.6-24.9)
== END ==
PROVIDERS: PCP Family Medicine; Referring Provider Family Medicine; Visit Provider Family Medicine
DX: N92.6 Irregular menstruation, unspecified (principal); E88.81 Metabolic syndrome and other insulin resistance
CPT/HCPCS: 80053; 83525; 84443; 84702

== ENCOUNTER → 2021-01-14 10:25 | Outpatient (CLI) | payer OTHER, SELFPAY ==
[2021-01-14 10:52] LABS: Add Manual Diff / Slide Review NO; Basophils Absolute Auto 0 /uL (0-100); Basophils Percent Auto 0.8 % (0-2); Eosinophils Absolute Auto 300 /uL (0-450); Eosinophils Percent Auto 5.1 % (2-4); Hematocrit 36.9 % (36-46); Hemoglobin 11.8 g/dL (12.0-16.0); Lymphocytes Absolute Auto 1600 /uL (1100-4500); Lymphocytes Percent Auto 31.7 % (25-40); Mean Corpuscular HGB Conc 31.9 % (30-36); Mean Corpuscular Hemoglobin 27.6 PG (26-34); Mean Corpuscular Volume 86.7 fL (80-100); Monocytes Absolute Auto 400 /uL (0-900); Monocytes Percent Auto 7.8 % (3-14); Neutrophils Absolute Auto 2800 /uL (1500-7000); Neutrophils Percent Auto 54.6 % (50-75); Platelet Count 255 X10^3/uL (150-400); Red Blood Cell Count 4.25 X10^6/uL (4.0-5.2); Red Cell Distribution Width 14.9 % (11.6-14.8); White Blood Cell Count 5.1 X10^3/uL (4.5-11.0)
[2021-01-16 16:20] LABS: ANA Screen, IFA Negative (.)
== END ==
PROVIDERS: PCP Family Medicine; Referring Provider Registered Nurse; Visit Provider Registered Nurse
DX: R53.83 Other fatigue (principal)
CPT/HCPCS: 36415; 85025; 86038

== ENCOUNTER → 2021-02-28 11:09 | Outpatient (CLI) | payer OTHER, SELFPAY ==
[2021-02-28 12:25] LABS: Add Manual Diff / Slide Review NO; Basophils Absolute Auto 0 /uL (0-100); Basophils Percent Auto 0.6 % (0-2); Eosinophils Absolute Auto 300 /uL (0-450); Eosinophils Percent Auto 6.1 % (2-4); Hematocrit 33.9 % (36-46); Hemoglobin 10.9 g/dL (12.0-16.0); Lymphocytes Absolute Auto 1700 /uL (1100-4500); Lymphocytes Percent Auto 30.5 % (25-40); Mean Corpuscular HGB Conc 32.2 % (30-36); Mean Corpuscular Hemoglobin 28.3 PG (26-34); Mean Corpuscular Volume 88.1 fL (80-100); Monocytes Absolute Auto 400 /uL (0-900); Monocytes Percent Auto 6.6 % (3-14); Neutrophils Absolute Auto 3200 /uL (1500-7000); Neutrophils Percent Auto 56.2 % (50-75); Platelet Count 246 X10^3/uL (150-400); Red Blood Cell Count 3.85 X10^6/uL (4.0-5.2); Red Cell Distribution Width 15.4 % (11.6-14.8); White Blood Cell Count 5.6 X10^3/uL (4.5-11.0)
[2021-02-28 12:35] LABS: Hemoglobin A1C% w Est Avg Glu 5.4 % (4.0-6.0)
[2021-02-28 12:53] LABS: HEMOLYSIS < 15 (0-50); Iron 40 ug/dL (37-170)
[2021-02-28 13:04] LABS: Percent Iron Saturation 10 % (15-50); Total Iron Binding Capacity 409 ug/dL (265-497); Transferrin 326 mg/dL (206-381)
[2021-02-28 13:10] LABS: HCG Quantitative /Beta subunit < 2.4 mIU/mL
[2021-02-28 13:29] LABS: Ferritin 7 ng/mL (6-137)
== END ==
PROVIDERS: PCP Family Medicine; Referring Provider Family Medicine; Visit Provider Family Medicine
DX: D64.9 Anemia, unspecified (principal); R53.83 Other fatigue; E88.81 Metabolic syndrome and other insulin resistance; R73.01 Impaired fasting glucose
CPT/HCPCS: 36415; 82728; 83036; 83540; 83550; 84702; 85025

== ENCOUNTER → 2021-05-11 16:45 | Outpatient (CLI) | payer OTHER, SELFPAY ==
[2021-05-11 18:14] LABS: Add Manual Diff / Slide Review NO; Basophils Absolute Auto 0 /uL (0-100); Basophils Percent Auto 0.6 % (0-2); Eosinophils Absolute Auto 400 /uL (0-450); Eosinophils Percent Auto 4.6 % (2-4); Hematocrit 37.8 % (36-46); Hemoglobin 12.6 g/dL (12.0-16.0); Lymphocytes Absolute Auto 2400 /uL (1100-4500); Lymphocytes Percent Auto 31.7 % (25-40); Mean Corpuscular HGB Conc 33.4 % (30-36); Mean Corpuscular Hemoglobin 30.2 PG (26-34); Mean Corpuscular Volume 90.2 fL (80-100); Monocytes Absolute Auto 500 /uL (0-900); Neutrophils Absolute Auto 4400 /uL (1500-7000); Neutrophils Percent Auto 57.1 % (50-75); Platelet Count 265 X10^3/uL (150-400); Red Blood Cell Count 4.19 X10^6/uL (4.0-5.2); Red Cell Distribution Width 14.7 % (11.6-14.8); White Blood Cell Count 7.7 X10^3/uL (4.5-11.0)
== END ==
PROVIDERS: PCP Family Medicine; Referring Provider Family Medicine; Visit Provider Family Medicine
DX: D50.0 Iron deficiency anemia secondary to blood loss (chronic) (principal); R53.83 Other fatigue
CPT/HCPCS: 36415; 85025

== ENCOUNTER → 2021-06-01 13:55 | Outpatient (CLI) | payer OTHER, SELFPAY ==
[2021-06-01 14:41] LABS: Add Manual Diff / Slide Review NO; Basophils Absolute Auto 0 /uL (0-100); Basophils Percent Auto 0.4 % (0-2); Eosinophils Absolute Auto 400 /uL (0-450); Eosinophils Percent Auto 4.3 % (2-4); Hematocrit 39.2 % (36-46); Hemoglobin 13.1 g/dL (12.0-16.0); Lymphocytes Absolute Auto 2100 /uL (1100-4500); Lymphocytes Percent Auto 24.5 % (25-40); Mean Corpuscular HGB Conc 33.4 % (30-36); Mean Corpuscular Hemoglobin 30.4 PG (26-34); Mean Corpuscular Volume 91.1 fL (80-100); Monocytes Absolute Auto 500 /uL (0-900); Monocytes Percent Auto 5.6 % (3-14); Neutrophils Absolute Auto 5700 /uL (1500-7000); Neutrophils Percent Auto 65.2 % (50-75); Platelet Count 272 X10^3/uL (150-400); Red Cell Distribution Width 14.4 % (11.6-14.8); White Blood Cell Count 8.7 X10^3/uL (4.5-11.0)
[2021-06-01 15:25] LABS: HEMOLYSIS < 15 (0-50); Iron 57 ug/dL (37-170)
[2021-06-01 15:26] LABS: Alanine Aminotransferase 20 IU/L (<35); Albumin 4.4 g/dL (3.5-5.0); Albumin Globulin Ratio 1.4 (1.0-2.8); Alkaline Phosphatase 72 U/L (38-126); Aspartate Aminotransferase 24 IU/L (14-36); BUN Creatinine Ratio 19.4 (6-22); Bilirubin Total 0.3 mg/dL (0.2-1.3); Blood Urea Nitrogen 13 mg/dL (7-17); Calcium 9.5 mg/dL (8.4-10.2); Carbon Dioxide 26 mmol/L (22-32); Chloride 103 mmol/L (98-107); Estimated Glomerular Filt Rate > 60.0 mL/min (>60); Globulin 3.1 g/dL (1.7-4.1); Glucose 95 mg/dL (70-100); HEMOLYSIS < 15 (0-50); Potassium 4.1 mmol/L (3.4-5.1); Sodium 136 mmol/L (137-145); Total Protein 7.5 g/dL (6.3-8.2)
[2021-06-01 15:37] LABS: Percent Iron Saturation 19 % (15-50); Total Iron Binding Capacity 301 ug/dL (265-497); Transferrin 254 mg/dL (206-381)
[2021-06-01 16:01] LABS: Ferritin 114 ng/mL (6-137)
[2021-06-02 07:07] LABS: Hepatitis B Surf Ab Qualitativ Reactive (.)
[2021-06-02 16:15] LABS: Rubeola Measles IgG < 13.5 AU/mL (Immune >16.4)
[2021-06-03 08:10] LABS: Mumps Virus IgG Antibody 15.1 AU/mL (Immune >10.9)
== END ==
PROVIDERS: PCP Family Medicine; Referring Provider Family Medicine; Visit Provider Family Medicine
DX: D50.0 Iron deficiency anemia secondary to blood loss (chronic) (principal); E28.2 Polycystic ovarian syndrome; E66.01 Morbid (severe) obesity due to excess calories; E88.81 Metabolic syndrome and other insulin resistance; Z68.42 Body mass index [BMI] 45.0-49.9, adult; Z01.84 Encounter for antibody response examination
CPT/HCPCS: 36415; 80053; 82728; 83540; 83550; 85025; 86706; 86735; 86762; 86765

== ENCOUNTER → 2021-06-15 17:27 | Outpatient (CLI) | payer OTHER, MEDICAID, SELFPAY ==
[2021-06-15 18:25] LABS: COVID19 -Nasal RAPID Negative (Negative)
== END ==
PROVIDERS: PCP Family Medicine; Visit Provider Specialist
DX: Z20.822 Contact with and (suspected) exposure to COVID-19 (principal); Z01.812 Encounter for preprocedural laboratory examination
CPT/HCPCS: 87635

== ENCOUNTER 2021-06-16 06:52 | Day surgery (SDC) | payer OTHER, MEDICAID, SELFPAY ==
[2021-06-10 11:41] VITALS: BMI 48.4
[2021-06-16] VITALS (7 sets, daily range): BP systolic 127–159; BP diastolic 62–87; PULSE 46–65; RESP 10–16; TEMP 36.4–36.7; O2SAT 60–99; BMI 48.4
--- NOTE | 2021-06-16 | PATH_ITS ---
[facility] Accession Number: [id number] . 01 Material submitted: . endometrium - ENDOMETRIAL CURRETINGS . 02 Diagnosis: Endometrium, Curettings: Proliferative endometrium with no evidence of neoplasia or hyperplasia. MRV 06/20/2021 1127 Local . 02 Electronically signed: . Malissa Varner MD, Pathologist NPI- [id number] . 01 Gross description: . ENDOMETRIAL CURRETINGS: Received in formalin are minute fragments of mucoid and hemorrhagic material measuring 3.0 x 2.2 x 0.3 cm in aggregate. Submitted in toto in 1 cassette. /VASILE 06/17/2021 0148 Local . 02 Pathologist provided ICD-10: N92.0 . 02 CPT . 301625 Performed at: 01 [facility] [address] [id number] MD Cruzito Montgomery MD Phone: [phone] Performed at: 02 [facility] [place] [address] [address], [place] [id number] MD Malissa Varner MD Phone: [phone]
[2021-06-16] MEDS: LACTATED RINGERS 1,000 ML 100 ML IV (07:40)
--- NOTE | 2021-06-16 08:06 | PM.HP.1 ---
History of Present Illness History of Present Illness Date Patient Seen: 06/16/21 Time Patient Seen: 08:07 Chief complaint: SDC Narrative: Patient is a 35-year-old 2 para 2 who presents for a D&C hysteroscopy with NovaSure endometrial ablation due to menorrhagia. 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) Spontaneous vaginal delivery Wheezing Afnia-Tumpqexnc-Hvptw (WPW) syndrome Surgical History History of colonoscopy (~08/17/20) History of third molar tooth extraction Status post laparoscopic cholecystectomy Family & Social History Family History (Updated 04/08/21 @ 21:08 by Jelena Borden DO) Child Autism Father Hypertension Diabetes mellitus Mother Hypertension Gallstones Cancer Diabetes mellitus SLE (systemic lupus erythematosus) Psoriasis Brother Cancer B-cell lymphoma Psoriasis Grandmother Diabetes mellitus Social History: household members spouse,children Tobacco & Substance use: Smoking Status Never smoker alcohol intake never alcohol intake frequency 0-2 drinks per day Substance Use Type does not use Meds Home Medications and Allergies Home Medications Medication Instructions Recorded Confirmed Type albuterol sulfate 90 mcg/actuation 1 inh INHALATION Q4-6H PRN #18 gram 05/27/20 06/16/21 Rx aerosol inhaler citalopram 20 mg tablet 20 mg PO DAILY #90 tab 09/09/20 06/16/21 Rx atenolol 25 mg tablet See Rx Instructions .ROUTE 01/03/21 06/16/21 Rx .COMPLEX #180 tab levothyroxine 50 mcg tablet See Rx Instructions .ROUTE 03/14/21 06/16/21 Rx .COMPLEX #90 tab metformin 500 mg tablet,extended 500 mg PO DAILY #30 tab 05/13/21 06/16/21 Rx release 24 hr Allergies Allergy/AdvReac Type Severity Reaction Status Date / Time amoxicillin AdvReac does not Verified 06/14/21 14:55 work Exam Vital Signs (past 8 hours): - 06/16/21 07:24 Temperature 97.7 F Pulse Rate 60 Respiratory Rate 14 Blood Pressure 127/77 Pulse Oximetry 60 L Oxygen Delivery Method Room Air Narrative Exam Narrative: HEENT: No thyromegaly, no anterior cervical or supraclavicular lymphadenopathy. Lungs:Clear to auscultation bilaterally, no wheezes. Cardiovascular: Regular rate and rhythm, no murmurs, rubs, or gallops. Abdomen: Well-healed right upper quadrant laparoscopy scars. No hepatosplenomegaly. No masses palpable. External genitalia: Normal Vagina: Normal Cervix: Normal Bimanual exam: 8 Week size anteverted uterus. Mobile. No adnexal masses or tenderness Assessment & Plan Assessment & Plan narrative: Assessment: 35-year-old 2 para 2 with menorrhagia Plan: D&C hysteroscopy with NovaSure endometrial ablation The risks, benefits, and alternatives to the procedure were explained to the patient. The risks including bleeding, infection, and uterine perforation. She understands these risks and agrees to proceed. A full par Q was held and consent form was signed. COVID-19 COVID-19 status: Negative Result date/Date tested (Pos, Neg/Pending): 06/15/21 Time Spent With Patient Time with patient: less than 30 minutes Critical Care time: I spent a total of [] minutes of critical care time on this patient's care today; this time is exclusive of procedural time.
--- NOTE | 2021-06-16 08:09 | PM.PREOP ---
Pre-operative Note COVID-19 COVID-19 status: Negative Result date/Date tested (Pos, Neg/Pending): 06/15/21 Interval Note History & Physical reviewed/Exam performed by Physician: Yes Changes to H&P: No H&P completed within 30 days and has changed as indicated here:: 06/16/21
--- NOTE | 2021-06-16 08:48 | PM.GYNOP.1 ---
Operative Date/Time/Diagnoses Date of procedure: 06/16/21 Time of procedure: 08:48 Pre-op diagnosis: Menorrhagia Post-op diagnosis: same Procedure & Clinicians Procedure: Procedures Operation Date: 06/16/21 08:15 <No data on this case meets the specified criteria> Indications: Menorrhagia Surgeon: Ary Sheppard Anesthesia Type: General (LMA) Operative Notes Findings: 7 week size anteverted uterus Both fallopian tube ostia observed No polyps or fibroids Thickened endometrium Closure Type: not applicable Specimen(s): endometrial curettings Estimated blood loss (mL): 5 Blood products transfused: none Procedure in detail: After informed consent was obtained, the patient was taken to the operating room where she was placed in the dorsal supine position. After adequate LMA general anesthesia was achieved, she was placed in the dorsal lithotomy position, and prepped and draped in the usual sterile fashion. A time-out was performed. A bivalve speculum was placed into the vagina and the anterior lip of the cervix was grasped with a single-tooth tenaculum. The cervical os was sequentially dilated to the # 8 Hegar dilator. The hysteroscope passed easily into the endometrial cavity. Both fallopian tube ostia were observed. There were no polyps or fibroids. There was thickened endometrium throughout. The hysteroscope was removed. Sharp curettage was performed yielding a large amount of endometrial curettings. The uterus was measured from the internal os to the fundus and measured 4 cm. This was set on the NovaSure catheter as well as the generator. NovaSure catheter passed easily into the endometrial cavity and was opened. The width was 4.5 cm. This was also set on the generator. This indicated a power of 99 w. The cervix was capped, the cavity assessment was performed and passed. The cycle was initiated and lasted 104 seconds. At the completion of the cycle cervix was then capped, the NovaSure catheter was closed and removed from the uterus. Single-tooth tenaculum was removed from the anterior lip of the cervix. The bivalve speculum was removed from the vagina. Sponge, lap, and instrument counts were correct x2. The patient tolerated the procedure well, and was taken to PACU in stable condition. Complications: none Post-operative Condition: stable Disposition: PACU Plan for aftercare: Home after recovery
--- NOTE | 2021-06-16 08:49 | SUR.OPER ---
Lithotomy on padded OR bed, head on pillow, arms secured on padded arm boards at <90 degrees abduction. Legs secured in padded yellow fins stirrups.
[2021-06-16] MEDS: OXYCODONE/ACETAMINOPHEN 5/325 TABLET 1 TAB PO (09:18)
== END 2021-06-16 09:45 | disposition home or self-care (01) ==
PROVIDERS: PCP Family Medicine; Referring Provider Obstetrics & Gynecology; Visit Provider Obstetrics & Gynecology
PROC: 0U5B8ZZ Destruction of Endometrium, Via Natural or Artificial Opening Endoscopic (ICD-10-PCS; CPT 58563; principal; 2021-06-16 08:15)
DX: N92.0 Excessive and frequent menstruation with regular cycle (principal); E03.9 Hypothyroidism, unspecified; J45.909 Unspecified asthma, uncomplicated; E66.9 Obesity, unspecified
CPT/HCPCS: 58563; 81025; J1100; J1885; J2250; J2405; J2704; J3010

== ENCOUNTER → 2021-06-30 18:56 | Outpatient (CLI) | payer OTHER, MEDICAID, SELFPAY | PROVIDERS: PCP Family Medicine; Referring Provider Internal Medicine; Visit Provider Internal Medicine | DX: Z23 Encounter for immunization (principal) | CPT/HCPCS: 90471; 90686 ==

== ENCOUNTER → 2021-08-03 10:00 | Outpatient (CLI) | payer OTHER, MEDICAID, SELFPAY ==
[2021-08-03 10:58] LABS: Hemoglobin A1C% w Est Avg Glu 5.3 % (4.0-6.0)
[2021-08-03 12:09] LABS: Alanine Aminotransferase 17 IU/L (<35); Albumin 4.1 g/dL (3.5-5.0); Albumin Globulin Ratio 1.4 (1.0-2.8); Alkaline Phosphatase 66 U/L (38-126); Aspartate Aminotransferase 21 IU/L (14-36); BUN Creatinine Ratio 16.2 (6-22); Bilirubin Total 0.3 mg/dL (0.2-1.3); Blood Urea Nitrogen 11 mg/dL (7-17); Calcium 9.3 mg/dL (8.4-10.2); Carbon Dioxide 27 mmol/L (22-32); Chloride 104 mmol/L (98-107); Estimated Glomerular Filt Rate > 60.0 mL/min (>60); Globulin 2.9 g/dL (1.7-4.1); Glucose 90 mg/dL (70-100); HEMOLYSIS < 15 (0-50); Lipase 77 U/L (23-300); Potassium 4.8 mmol/L (3.4-5.1); Sodium 138 mmol/L (137-145)
[2021-08-04 08:13] LABS: Interpretation Negative (Negative)
== END ==
PROVIDERS: PCP Family Medicine; Referring Provider Family Medicine; Visit Provider Family Medicine
DX: E88.81 Metabolic syndrome and other insulin resistance (principal); E66.01 Morbid (severe) obesity due to excess calories; Z68.42 Body mass index [BMI] 45.0-49.9, adult; E28.2 Polycystic ovarian syndrome; E03.9 Hypothyroidism, unspecified; R12 Heartburn
CPT/HCPCS: 36415; 80053; 83013; 83036; 83690

== ENCOUNTER → 2021-08-24 16:11 | Outpatient (CLI) | payer OTHER, MEDICAID, SELFPAY ==
[2021-08-24 16:42] LABS: COVID19 -Nasal RAPID Negative (Negative)
== END ==
PROVIDERS: PCP Family Medicine; Referring Provider Nurse Practitioner Family; Visit Provider Nurse Practitioner Family
DX: Z20.822 Contact with and (suspected) exposure to COVID-19 (principal)
CPT/HCPCS: 87635

== ENCOUNTER → 2021-08-29 16:23 | Outpatient (CLI) | payer OTHER, MEDICAID, SELFPAY ==
[2021-08-29 16:54] LABS: COVID19 -Nasal RAPID Negative (Negative)
== END ==
PROVIDERS: PCP Family Medicine; Referring Provider Physician Assistant; Visit Provider Physician Assistant
DX: Z20.822 Contact with and (suspected) exposure to COVID-19 (principal)
CPT/HCPCS: 87635

== ENCOUNTER 2021-09-04 07:28 | Emergency (ER) | payer OTHER, MEDICAID, SELFPAY ==
[2021-09-04 07:37] VITALS: BP 177/84; PULSE 78; RESP 16; TEMP 36.8; O2SAT 98; BMI 46.7
--- NOTE | 2021-09-04 07:41 | ED.GENADULT ---
HPI - General Adult General Chief complaint: Abdominal Pain Stated complaint: abd. pain vomiting Time Seen by Provider: 09/04/21 07:32 Source: patient Mode of arrival: Ambulatory History of Present Illness HPI narrative: 35-year-old woman with a history of hypothyroidism anxiety and depression, rectal bleeding with recent colonoscopy that was unremarkable, upper abdominal complaints with concern for developing either gastric or peptic ulcers with recent referral okayed for upper endoscopy. She has not yet had an upper endoscopy. Last night began having severe mid epigastric radiating into the right upper quadrant abdominal pain associated with non bloody emesis and non bloody diarrhea. She reports no fevers or chills. She is fully vaccinated and boosted but has had recent exposures to COVID. She describes no headache, no palpitations, chest pain, lower extremity edema. Related Data Previous Rx's Medication Instructions Recorded albuterol sulfate 90 mcg/actuation 1 inh INHALATION Q4-6H PRN #18 gram 05/27/20 aerosol inhaler citalopram 20 mg tablet 20 mg PO DAILY #90 tab 09/09/20 atenolol 25 mg tablet See Rx Instructions .ROUTE 06/30/21 .COMPLEX #180 tab levothyroxine 50 mcg tablet See Rx Instructions .ROUTE 06/30/21 .COMPLEX #90 tab liraglutide 0.6 mg/0.1 mL (18 mg/3 1.8 mg (0.3 mL) SUBCUT .COMPLEX 08/03/21 mL) subcutaneous pen injector #27 ml pen needle, diabetic 31 gauge x #50 ea 08/03/21 3/16 (Sure-Fine Pen [place]) ondansetron 4 mg disintegrating 4 mg PO Q8H PRN #15 tab 09/04/21 tablet oxycodone-acetaminophen 5 mg-325 1 tab PO Q6H PRN #10 tab 09/04/21 mg tablet pantoprazole 40 mg tablet,delayed 40 mg PO DAILY #30 tab 09/04/21 release (Protonix) Allergies Allergy/AdvReac Type Severity Reaction Status Date / Time amoxicillin AdvReac does not Verified 09/04/21 07:39 work Review of Systems Review of Systems Narrative: Remainder of complete review of systems is otherwise unremarkable except for that included in the HPI. 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) Spontaneous vaginal delivery Wheezing Ffjny-Yocbfjlfg-Sofqu (WPW) syndrome Surgical History History of colonoscopy (~08/17/20) History of third molar tooth extraction Status post endometrial ablation (~06/16/21) Status post laparoscopic cholecystectomy Family History Child Autism Father Hypertension Diabetes mellitus Mother Hypertension Gallstones Cancer Diabetes mellitus SLE (systemic lupus erythematosus) Psoriasis Brother Cancer B-cell lymphoma Psoriasis Grandmother Diabetes mellitus Social History marital status: number of children: 2 household members: spouse and children occupational status: employed Smoking Status: Never smoker alcohol intake: never substance use type: does not use Smoking Status: Never smoker alcohol intake frequency: 0-2 drinks per day Substance Use Type: does not use Exam Narrative Exam Narrative: General: Healthy appearing, in moderate distress. Able to give a complete and coherent history. Well-nourished well-developed HEENT: Moist mucous membranes, normal sclera with reactive pupils, Neck: No cervical adenopathy, supple Respiratory: Lungs are clear to auscultation, no wheezing no rales no rhonchi. Full and symmetrical air movement Cardiac: Regular rate and rhythm no murmurs no bruits Abdomen: Soft, significantly tender in the epigastric region radiating into the right upper quadrant, no rebound or guarding, good bowel tones, no flank pain Skin: Warm and dry, no rashes Neurologic: Grossly neurologically intact with no obvious asymmetries or abnormalities Extremities: No trauma, well perfused Psych: Cooperative, appropriate insight and affect Initial Vital Signs Initial Vital Signs: Vital Signs Temperature 98.3 F 09/04/21 07:37 Pulse Rate 78 09/04/21 07:37 Respiratory Rate 16 09/04/21 07:37 Blood Pressure 177/84 H 09/04/21 07:37 Pulse Oximetry 98 09/04/21 07:37 Course Orders Ordered: ED Orders 09/04/21 08:41 EKG-12 Lead Stat 09/04/21 09:10 Type and Screen Stat 09/04/21 09:15 Complete Blood Count AUTO DIFF Stat Comprehensive Metabolic Panel Stat Lipase Stat Magnesium Stat 09/04/21 09:20 COVID19 - ADMIT (SCREENPLAY WRITER swab/PCR) Stat 09/04/21 10:24 Urinalysis and Microscopic Stat Hydromorphone HCl (Hydromorphone 0.5 Mg Inj) 0.5 mg IV Q15MIN PRN PRN Reason: Pain, Last Admin: 09/04/21 10:24 Dose: 0.5 mg Documented by: Admin: 09/04/21 09:35 Dose: 0.5 mg Documented by: LAURIE Discontinued Medications Sodium Chloride (Normal Saline 0.9%) 1,000 mls @ 1,000 mls/hr IV BOLUS ONE Stop: 09/04/21 08:45 Last Infusion: 09/04/21 11:03 Dose: 1,000 mls/hr Documented by: Admin: 09/04/21 09:36 Dose: 1,000 mls/hr Documented by: LAURIE Metoclopramide HCl (Metoclopramide 10 Mg/2 Ml Inj) 10 mg IV NOW ONE Stop: 09/04/21 12:02 Ondansetron HCl (Ondansetron 4 Mg/2 Ml Inj) 4 mg IV NOW ONE Stop: 09/04/21 07:47 Last Admin: 09/04/21 09:35 Dose: 4 mg Documented by: LAURIE Pantoprazole Sodium (Pantoprazole 40 Mg Vial) 40 mg IV NOW ONE Stop: 09/04/21 10:45 Vital Signs Vital signs: Vital Signs - 8 hr 09/04/21 07:37 09/04/21 11:33 Temperature 98.3 F Pulse Rate 78 84 Respiratory Rate 16 20 Blood Pressure 177/84 H 141/80 H Pulse Oximetry 98 95 Medical Decision Making Lab Data Result diagrams: 09/04/21 09:15 09/04/21 09:15 Labs: Lab Results 09/04/21 09/04/21 09/04/21 Range/Units 09:10 09:15 09:15 WBC 8.4 (4.5-11.0) X10^3/uL RBC 4.50 (4.0-5.2) X10^6/uL Hgb 13.6 (12.0-16.0) g/dL Hct 40.9 (36-46) % MCV 90.9 (80-100) fL MCH 30.2 (26-34) PG MCHC 33.3 (30-36) % RDW 12.9 (11.6-14.8) % Plt Count 293 (150-400) X10^3/uL Neut % (Auto) 72.1 (50-75) % Lymph % (Auto) 18.9 L (25-40) % [place] % (Auto) 4.6 (3-14) % Eos % (Auto) 2.9 (2-4) % Baso % (Auto) 1.5 (0-2) % Neut # (Auto) 6100 (1939-1442) /uL Lymph # (Auto) 1600 (4681-4129) /uL [place] # (Auto) 400 (0-900) /uL Eos # (Auto) 200 (0-450) /uL Baso # (Auto) 100 (0-100) /uL Sodium 137 (137-145) mmol/L Potassium 4.4 (3.4-5.1) mmol/L Chloride 105 (98-107) mmol/L Carbon Dioxide 27 (22-32) mmol/L BUN 12 (7-17) mg/dL Creatinine 0.65 (0.52-1.04) mg/dL Estimated GFR > 60.0 (>60) mL/min BUN/Creatinine Ratio 18.5 (6-22) Glucose 103 H (70-100) mg/dL Calcium 9.9 (8.4-10.2) mg/dL Magnesium 2.0 (1.6-2.3) mg/dL Total Bilirubin 0.4 (0.2-1.3) mg/dL AST 31 (14-36) IU/L ALT 25 (<35) IU/L Alkaline Phosphatase 75 (38-126) U/L Total Protein 7.9 (6.3-8.2) g/dL Albumin 4.4 (3.5-5.0) g/dL Globulin 3.5 (1.7-4.1) g/dL Albumin/Globulin Ratio 1.3 (1.0-2.8) Lipase 62 (23-300) U/L Urine Color Urine Appearance Urine pH (4.5-8.0) Ur Specific [place] (1.000-1.035) Urine Protein (Negative) Urine Glucose (UA) (Negative) g/dL Urine Ketones (NEGATIVE) Urine Occult Blood (Negative) Urine Nitrate (Negative) Urine Bilirubin (NEGATIVE) Urine Urobilinogen (0.2) E.U./dL Ur Leukocyte Esterase (NEGATIVE) Urine RBC (0-5/HPF) Urine WBC (0-5/HPF) Ur Squamous Epith Cells (0-5/HPF) Urine Bacteria (None) Urine Mucus (Negative) Ur Culture Indicated? SARS-CoV-2 (PCR) (Negative) Blood Type A Positive Antibody Screen Negative 09/04/21 09/04/21 Range/Units 09:20 10:24 WBC (4.5-11.0) X10^3/uL RBC (4.0-5.2) X10^6/uL Hgb (12.0-16.0) g/dL Hct (36-46) % MCV (80-100) fL MCH (26-34) PG MCHC (30-36) % RDW (11.6-14.8) % Plt Count (150-400) X10^3/uL Neut % (Auto) (50-75) % Lymph % (Auto) (25-40) % [place] % (Auto) (3-14) % Eos % (Auto) (2-4) % Baso % (Auto) (0-2) % Neut # (Auto) (5595-9508) /uL Lymph # (Auto) (0460-8121) /uL [place] # (Auto) (0-900) /uL Eos # (Auto) (0-450) /uL Baso # (Auto) (0-100) /uL Sodium (137-145) mmol/L Potassium (3.4-5.1) mmol/L Chloride (98-107) mmol/L Carbon Dioxide (22-32) mmol/L BUN (7-17) mg/dL Creatinine (0.52-1.04) mg/dL Estimated GFR (>60) mL/min BUN/Creatinine Ratio (6-22) Glucose (70-100) mg/dL Calcium (8.4-10.2) mg/dL Magnesium (1.6-2.3) mg/dL Total Bilirubin (0.2-1.3) mg/dL AST (14-36) IU/L ALT (<35) IU/L Alkaline Phosphatase (38-126) U/L Total Protein (6.3-8.2) g/dL Albumin (3.5-5.0) g/dL Globulin (1.7-4.1) g/dL Albumin/Globulin Ratio (1.0-2.8) Lipase (23-300) U/L Urine Color Yellow Urine Appearance Clear Urine pH 6.5 (4.5-8.0) Ur Specific [place] 1.025 (1.000-1.035) Urine Protein Negative (Negative) Urine Glucose (UA) Negative (Negative) g/dL Urine Ketones Negative (NEGATIVE) Urine Occult Blood 2+ H (Negative) Urine Nitrate Negative (Negative) Urine Bilirubin Negative (NEGATIVE) Urine Urobilinogen 0.2 (0.2) E.U./dL Ur Leukocyte Esterase Negative (NEGATIVE) Urine RBC 1-5/hpf (0-5/HPF) Urine WBC 1-5/hpf (0-5/HPF) Ur Squamous Epith Cells 1-5 /hpf (0-5/HPF) Urine Bacteria None seen (None) Urine Mucus 1+ H (Negative) Ur Culture Indicated? Cult not indicated SARS-CoV-2 (PCR) Negative (Negative) Blood Type Antibody Screen Point of Care Testing Test Results Negative Urine Dip Bedside Urine Glucose Negative Bedside Urine Bilirubin - Negative Bedside Urine Ketone - Negative Urine Specific [place] 1.025 Bedside Urine Occult Blood + Bedside Urine pH 6.0 Bedside Urine Protein - Negative Bedside Urine Urobilinogen - Negative Bedside Urine Nitrite - Negative Bedside Urine Leukocytes - Negative Esterase Point of care testing: Point of Care Testing Test Results Negative Urine Dip Bedside Urine Glucose Negative Bedside Urine Bilirubin - Negative Bedside Urine Ketone - Negative Urine Specific [place] 1.025 Bedside Urine Occult Blood + Bedside Urine pH 6.0 Bedside Urine Protein - Negative Bedside Urine Urobilinogen - Negative Bedside Urine Nitrite - Negative Bedside Urine Leukocytes - Negative Esterase MDM Narrative Medical decision making narrative: 35-year-old woman presents with severe mid epigastric pain worse after vomiting moderate dehydration concerned that she is developing peptic or gastric ulcers. No overt blood in the emesis or in stools. Significantly improved with pain medicine, saline, proton pump inhibitor and Zofran. Labs are reassuring with no evidence of acute anemia, active GI bleeding, infection, choledocholithiasis. will give her a brief course of Percocet to help with the severe abdominal pain, Zofran to help with the nausea and start her on Protonix 40 mg daily. She will need follow-up with her primary care physician and she understands this. Questions are answered and she is safe for home discharge Discharge Plan Departure Patient Disposition: Home Clinical Impression: Acute epigastric pain Nausea & vomiting Qualifiers: Vomiting type: unspecified Vomiting Intractability: non-intractable Qualified Code(s): R11.2 - Nausea with vomiting, unspecified Instructions: DI for Peptic Ulcer Activity Restrictions/Additional Instructions: Thank you for coming in today I am sorry that your hurting so much. I am glad that the fluids, Zofran, pain medication and acid marcela all seem to help. I am going to send you home with prescription for Protonix to help reduce the acid level in your stomach. Zofran can help with nausea A brief course of Percocet for the next 1-2 days to help with the acute abdominal pain, after that please use Tylenol Prescriptions were all electronically transmitted to [facility] [place] You will need to follow-up with your primary care physician and may well benefit from GI consultation and upper endoscopy as an outpatient. If you have worsening symptoms, do began vomiting blood or noting of bloody or black stools you do need to return to the ER Prescriptions: New oxycodone-acetaminophen 5-325 mg tablet 1 tab PO Q6H PRN (Reason: pain) Qty: 10 0RF ondansetron 4 mg tablet,disintegrating 4 mg PO Q8H PRN (Reason: nausea and vomiting) Qty: 15 0RF pantoprazole [Protonix] 40 mg tablet,delayed release (DR/EC) 40 mg PO DAILY Qty: 30 2RF No Action albuterol sulfate 90 mcg/actuation HFA aerosol inhaler 1 inh INHALATION Q4-6H PRN (Reason: shortness of breath) Qty: 18 0RF citalopram 20 mg tablet 20 mg PO DAILY Qty: 90 3RF atenolol 25 mg tablet See Rx Instructions .ROUTE .COMPLEX Qty: 180 3RF Dose Instruction: take 1 tablet by mouth twice a day Rx Instructions: take 1 tablet by mouth twice a day levothyroxine 50 mcg tablet See Rx Instructions .ROUTE .COMPLEX Qty: 90 3RF Dose Instruction: TAKE 1 TABLET BY MOUTH ONCE DAILY Rx Instructions: TAKE 1 TABLET BY MOUTH ONCE DAILY liraglutide 0.6 mg/0.1 mL (18 mg/3 mL) pen injector 1.8 mg SUBCUT .COMPLEX Qty: 27 1RF Rx Instructions: 1.8 mg SUBCUT; (DME) pen needle, diabetic [Sure-Fine Pen [place]] 31 gauge x 3/16 needle See Rx Instructions .Route Qty: 50 0RF Rx Instructions: As directed Referrals: Jelena Borden DO [Primary Care Provider] -
[2021-09-04] MEDS: HYDROMORPHONE 0.5 MG INJ IV ×2 (09:35→10:24)
[2021-09-04] MEDS: ONDANSETRON 4 MG/2 ML INJ IV (09:35)
[2021-09-04] MEDS: SODIUM CHLORIDE 0.9% 1,000 ML 1000 ML IV (09:36)
[2021-09-04 09:45] LABS: Add Manual Diff / Slide Review NO; Basophils Absolute Auto 100 /uL (0-100); Basophils Percent Auto 1.5 % (0-2); Eosinophils Absolute Auto 200 /uL (0-450); Eosinophils Percent Auto 2.9 % (2-4); Hematocrit 40.9 % (36-46); Hemoglobin 13.6 g/dL (12.0-16.0); Lymphocytes Absolute Auto 1600 /uL (1100-4500); Lymphocytes Percent Auto 18.9 % (25-40); Mean Corpuscular HGB Conc 33.3 % (30-36); Mean Corpuscular Hemoglobin 30.2 PG (26-34); Mean Corpuscular Volume 90.9 fL (80-100); Monocytes Absolute Auto 400 /uL (0-900); Monocytes Percent Auto 4.6 % (3-14); Neutrophils Absolute Auto 6100 /uL (1500-7000); Neutrophils Percent Auto 72.1 % (50-75); Platelet Count 293 X10^3/uL (150-400); Red Cell Distribution Width 12.9 % (11.6-14.8); White Blood Cell Count 8.4 X10^3/uL (4.5-11.0)
[2021-09-04 10:04] LABS: Alanine Aminotransferase 25 IU/L (<35); Albumin 4.4 g/dL (3.5-5.0); Albumin Globulin Ratio 1.3 (1.0-2.8); Alkaline Phosphatase 75 U/L (38-126); Aspartate Aminotransferase 31 IU/L (14-36); BUN Creatinine Ratio 18.5 (6-22); Bilirubin Total 0.4 mg/dL (0.2-1.3); Blood Urea Nitrogen 12 mg/dL (7-17); Calcium 9.9 mg/dL (8.4-10.2); Carbon Dioxide 27 mmol/L (22-32); Chloride 105 mmol/L (98-107); Estimated Glomerular Filt Rate > 60.0 mL/min (>60); Globulin 3.5 g/dL (1.7-4.1); Glucose 103 mg/dL (70-100); HEMOLYSIS < 15 (0-50); Lipase 62 U/L (23-300); Potassium 4.4 mmol/L (3.4-5.1); Sodium 137 mmol/L (137-145); Total Protein 7.9 g/dL (6.3-8.2)
[2021-09-04] MEDS: ONDANSETRON 4 MG/2 ML INJ (10:21)
[2021-09-04 10:27] LABS: Appearance Urine UA CLEAR; Bilirubin Urine UA NEGATIVE (NEGATIVE); Color Urine UA YELLOW; Glucose Urine UA NEGATIVE (Negative); Ketones Urine UA NEGATIVE (NEGATIVE); Leukocyte Esterase Urine UA NEGATIVE (NEGATIVE); Nitrite Urine UA NEGATIVE (Negative); Occult Blood Urine UA 2+ (Negative); Protein Urine UA NEGATIVE (Negative); Specific Gravity Urine UA 1.025 (1.000-1.035); Urobilinogen Urine UA 0.2 E.U./dL (0.2)
[2021-09-04 10:35] LABS: RBC Urine 1-5/HPF (0-5/HPF); Squamous Epithelial Cell Urine 1-5 /HPF (0-5/HPF); WBC Urine 1-5/HPF (0-5/HPF); pH Urine UA 6.5 (4.5-8.0)
[2021-09-04 10:36] LABS: Bacteria Urine None Seen; Culture Indicated Urine Cult Not Indicated; Mucus Urine 1+ (Negative)
[2021-09-04 10:48] LABS: COVID19 - ADMIT (NP swab/PCR) Negative (Negative)
[2021-09-04 11:33] VITALS: BP 141/80; PULSE 84; RESP 20; O2SAT 95
[2021-09-04] MEDS: PANTOPRAZOLE 40 MG VIAL IV (12:17)
[2021-09-04] MEDS: METOCLOPRAMIDE 10 MG/2 ML INJ IV (12:17)
[2021-09-04 12:26] VITALS: BP 160/82; PULSE 78; RESP 20; TEMP 36.6; O2SAT 97
== END 2021-09-04 12:34 | disposition home or self-care (01) ==
PROVIDERS: Emergency Provider Emergency Medicine; PCP Family Medicine
DX: R10.11 Right upper quadrant pain (principal); R10.13 Epigastric pain; R11.2 Nausea with vomiting, unspecified; E86.0 Dehydration; I10 Essential (primary) hypertension; Z20.822 Contact with and (suspected) exposure to COVID-19
CPT/HCPCS: 36415; 80053; 81001; 81003; 81025; 83690; 83735; 85025; 86850; 86900; 86901; 87635; 93005; 96361; 96374; 96375; 99284; C9803; C9113; J1170; J2405; J2765

== ENCOUNTER → 2021-10-05 10:41 | Outpatient (CLI) | payer OTHER, MEDICAID, SELFPAY ==
--- NOTE | 2021-10-05 10:45 | DIET.CONS ---
Dietary Consultation Note Assessment: 35y F with PCOS attending nutrition visit for help with weight loss. Pt reports being heavy entire life. Had food insecurity when young, often skipped breakfast and lunch. Pt has gotten down to 180# by working out 2.5hr/d with 1200 kcal restriction which felt unsustainable for her. Lives with son 11yo ([place]) edd (4), Rakesh (cook of family) Pt lost significant weight during both pregnancies with significant rebound weight gain after both. 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 Pt taking victoza x2mo currently 2.4mg without weight loss, though no weight gain. Pt admits to not working on diet or exercise for 6mo prior to starting this medication but is back at gym 3x/w and being more careful with food. Pt not considering bariatric surgery at this time because she is not a stress eater and tends to not eat much in general. Pts weight goal 250# currently 300# Usual Day: water with meds in morning no breakfast gets to work 3x/w [employer] instant oats (apple cinnamon) sometimes bagel c cream cheese L: special of day from [employer] or water or Sara really feeling hunger after work (4-6pm)- sometimes stops for drive through. usually grabs venti sara with whole milk at lunch or after work does most of cooking (great cook) D: steak tacos likes corn tortillas, guac, or chicken or pork chops with mac n cheese, loves potatoes- fries, home fries Loves tacos/Japanese food, does not like soup often doesn't eat when not at work Pt not a good protein eater. Pt doing 30 min cardio and 30 min weights 3x/w currently. RD Impression: Pts diet pattern shows very little intake during first half of day with any consumption being high carb, high sugar, and low protein which does not support hormone balance with PCOS. Pt eating good, balanced dinner and doing well with exercise program. Calorie restriction not helpful for this patient. Goal is to increase intake during first half of day with less carbs/sugar, more fiber and protein to avoid drive through on way home from work and to ensure reasonable portion sizes at dinner. Nutrition Diagnosis: morbid obesity r/t endocrine dysfunction and irratic high carb diet aeb pt 300#, pt on GLP1 medication not seeing weight loss, pt eating bagel or oatmeal only during first half of waking day. Interventions: 1. Problem solved pts daily sara latte habit which is stacking her with 60g CHO, 52g sugar, and saturated fat. Pt willing to switch to soymilk and make rola size as well as make her own sara at home when she is not working. While this does not eliminate this unhelpful food, it certainly is an improvement. 2. Collaborated c pt on ways to change bagel and oatmeal mid-morning snack. Pt willing to purchase the monkfruit sweetened Low Sugar oatmeal and sub apple with portion controlled PB in place of bagel. 3. Discussed high pro snacks to keep at work to avoid getting over hungry and going through drive thru after work. Pt will keep cheese sticks and hb eggs at work, may add crudite veggies. 4. Provided pt resource [email or web address] as she is interested in cooking one Mediterranean meal per week for her family. 5. Tweaked pts workouts to be 10min cardio alternating with strength training x3 to keep heart rate up. Monitoring/Evaluations: f/u in 2w after endocrinology visit Electronically Signed by: Carisa Carrillo 10/05/21 10:45 Clinical Dietitian [id number] [place] [address]
== END ==
PROVIDERS: PCP Family Medicine; Referring Provider Family Medicine; Visit Provider Family Medicine
DX: E28.2 Polycystic ovarian syndrome (principal)
CPT/HCPCS: 97802

== ENCOUNTER → 2021-10-19 16:52 | Outpatient (CLI) | payer OTHER, MEDICAID, SELFPAY ==
--- NOTE | 2021-10-21 11:23 | DIET.PN1 ---
Dietary Progress Note 35y F attending f/u for help with weight loss associated with PCOS. Pt had been as low as 293# but today was back up to 299#. She is happy to be under 300#. Pt met with PCOS mainframe systems programmer who suggested she move forward with bariatric surgery to help reduce weight enough to positively impact hormones. Pt considering gastric sleeve, does not want james-en-y because of intermediate side effects and reliance on supplements. Spent visit discussing pros and cons of this option. Pt will move forward with initial consultation through her insurance company. Further discussed strengths from last two weeks. Pt eating low sugar oatmeal every morning and apple with peanut butter for snack instead of bagels and take out coffees. Pt is purchasing rola chais instead of venti at [employer] and limits her to 3 per week vs the 5-7 she had before. All in all, pt making excellent changes to support weight and PCOS. F/u in 4w to assess progress and problem solve barriers. Electronically Signed by: Carisa Carrillo 10/21/21 11:23 Clinical [address] [id number]
== END ==
PROVIDERS: PCP Family Medicine; Referring Provider Family Medicine; Visit Provider Family Medicine
DX: E28.2 Polycystic ovarian syndrome (principal); Z71.3 Dietary counseling and surveillance
CPT/HCPCS: 97803

== ENCOUNTER → 2021-11-03 10:28 | Outpatient (CLI) | payer OTHER, MEDICAID, SELFPAY ==
--- NOTE | 2021-11-03 14:42 | DIET.PN1 ---
Dietary Progress Note RD Note: 35y F attending RD f/u for help with weight loss for PCOS. Pt continues to do well with PO changes discussed during first two visits. Pt eating oatmeal at breakfast, apple c PB as snack, often skips lunch, then meat and cheese stick before leaving work at end of work day. Pt only ordering 16oz sara instead of 20oz and is doing well with the change. Pt states focusing on consuming enough food during the work day has helped immensely in curbing her cravings to grab take out on way home from work. Pt has gotten take out 0/4 days this week. Pt has workout accountability partner who she will attend workouts with M, W, F starting next week. Pt moving foward with consultation for bariatric surgery. Pt would like to continue seeing this RD regardless for ongoing support. Pt reiterates she would like to be around 190-200#. Nutrition Diagnosis: morbid obesity r/t endocrine dysfunction and irratic high carb diet aeb pt 300#, pt on GLP1 medication not seeing weight loss, pt eating bagel or oatmeal only during first half of waking day. Interventions: 1. Shared neto workout ramiro with patient that focuses on pts with bigger bodies. 2. Reiterated great work pt is doing to decrease refined carbs and ensure she is spreading PO intake throughout the day rather than just eating at night. Monitoring/Evaluations: f/u in 2w Electronically Signed by: Carisa Carrillo 11/03/21 14:42 Clinical Diet[address] [address]
== END ==
PROVIDERS: PCP Family Medicine; Referring Provider Family Medicine; Visit Provider Family Medicine
DX: E66.01 Morbid (severe) obesity due to excess calories (principal); E28.2 Polycystic ovarian syndrome
CPT/HCPCS: 97803

== ENCOUNTER → 2021-12-23 10:29 | Outpatient (CLI) | payer OTHER, MEDICAID, SELFPAY ==
[2021-12-23 10:51] LABS: Add Manual Diff / Slide Review NO; Basophils Absolute Auto 0 /uL (0-100); Basophils Percent Auto 0.7 % (0-2); Eosinophils Absolute Auto 300 /uL (0-450); Hematocrit 40.2 % (36-46); Hemoglobin 13.8 g/dL (12.0-16.0); Lymphocytes Absolute Auto 2300 /uL (1100-4500); Lymphocytes Percent Auto 32.8 % (25-40); Mean Corpuscular HGB Conc 34.3 % (30-36); Mean Corpuscular Hemoglobin 30.3 PG (26-34); Mean Corpuscular Volume 88.3 fL (80-100); Monocytes Absolute Auto 300 /uL (0-900); Monocytes Percent Auto 4.7 % (3-14); Neutrophils Absolute Auto 4000 /uL (1500-7000); Neutrophils Percent Auto 57.8 % (50-75); Platelet Count 299 X10^3/uL (150-400); Red Blood Cell Count 4.55 X10^6/uL (4.0-5.2); Red Cell Distribution Width 12.8 % (11.6-14.8); White Blood Cell Count 6.9 X10^3/uL (4.5-11.0)
[2021-12-23 10:57] LABS: Hemoglobin A1C% w Est Avg Glu 5.5 % (4.0-6.0)
[2021-12-23 11:21] LABS: Alanine Aminotransferase 27 IU/L (<35); Albumin 4.5 g/dL (3.5-5.0); Albumin Globulin Ratio 1.5 (1.0-2.8); Alkaline Phosphatase 73 U/L (38-126); Aspartate Aminotransferase 29 IU/L (14-36); BUN Creatinine Ratio 22.5 (6-22); Bilirubin Total 0.4 mg/dL (0.2-1.3); Blood Urea Nitrogen 18 mg/dL (7-17); Calcium 9.4 mg/dL (8.4-10.2); Carbon Dioxide 29 mmol/L (22-32); Chloride 104 mmol/L (98-107); Cholesterol 203 mg/dL (140-199); Estimated Glomerular Filt Rate > 60 mL/min (>60); Glucose 99 mg/dL (70-100); HDL Cholesterol 48 mg/dL (40-60); HEMOLYSIS < 15 (0-50); LDL Cholesterol Calculated 123 mg/dL (<100); Potassium 4.8 mmol/L (3.4-5.1); Sodium 140 mmol/L (137-145); Total Protein 7.5 g/dL (6.3-8.2); Triglycerides 162 mg/dL (35-150)
[2021-12-23 11:38] LABS: Vitamin D 25 Hydroxy (D3) 31.2 ng/mL (30.0-100.0)
[2021-12-23 11:50] LABS: TSH w/ Reflex to FT4 1.87 uIU/mL (0.47-4.68)
[2021-12-23 12:24] LABS: Folate 7.8 ng/mL (2.76-20.0); Vitamin B12 652 pg/mL (239-931)
[2021-12-29 07:45] LABS: Vitamin B1 121.3 nmol/L (66.5-200.0)
== END ==
PROVIDERS: PCP Family Medicine; Referring Provider Family Medicine; Visit Provider Family Medicine
DX: D50.0 Iron deficiency anemia secondary to blood loss (chronic) (principal); E03.9 Hypothyroidism, unspecified; E28.2 Polycystic ovarian syndrome; E66.01 Morbid (severe) obesity due to excess calories; E88.81 Metabolic syndrome and other insulin resistance; I10 Essential (primary) hypertension; K90.9 Intestinal malabsorption, unspecified; R53.83 Other fatigue; Z68.42 Body mass index [BMI] 45.0-49.9, adult; Z83.3 Family history of diabetes mellitus
CPT/HCPCS: 36415; 80053; 80061; 82306; 82607; 82746; 83036; 84425; 84443; 85025

== ENCOUNTER → 2021-12-27 10:46 | Outpatient (CLI) | payer OTHER, MEDICAID, SELFPAY ==
[2021-12-27 13:48] LABS: COVID-19 CEPHEID PCR (VTM/NP) Negative (Negative)
== END ==
PROVIDERS: PCP Family Medicine; Visit Provider Family Medicine Sleep Medicine
DX: Z20.822 Contact with and (suspected) exposure to COVID-19 (principal)
CPT/HCPCS: C9803; U0003; U0005

== ENCOUNTER → 2022-08-29 15:59 | Outpatient (CLI) | payer OTHER, MEDICAID, SELFPAY | PROVIDERS: PCP Registered Nurse Diabetes Educator; Referring Provider Internal Medicine; Visit Provider Internal Medicine | DX: Z23 Encounter for immunization (principal) | CPT/HCPCS: 90471; 90686 ==

== ENCOUNTER → 2022-09-20 15:11 | Outpatient (CLI) | payer OTHER, MEDICAID, SELFPAY ==
[2022-09-20 15:35] LABS: Hematocrit 39.8 % (36-46); Mean Corpuscular HGB Conc 32.6 % (30-36); Mean Corpuscular Hemoglobin 30.1 PG (26-34); Mean Corpuscular Volume 92.4 fL (80-100); Platelet Count 259 X10^3/uL (150-400); Red Blood Cell Count 4.31 X10^6/uL (4.0-5.2); Red Cell Distribution Width 12.7 % (11.6-14.8); White Blood Cell Count 6.3 X10^3/uL (4.5-11.0)
[2022-09-20 16:10] LABS: Hemoglobin A1C% w Est Avg Glu 5.1 % (4.0-6.0)
[2022-09-20 16:14] LABS: Alanine Aminotransferase 37 IU/L (<35); Alkaline Phosphatase 117 U/L (38-126); Aspartate Aminotransferase 37 IU/L (14-36); BUN Creatinine Ratio 20.8 (6-22); Bilirubin Total 0.3 mg/dL (0.2-1.3); Blood Urea Nitrogen 10 mg/dL (7-17); Calcium 9.3 mg/dL (8.4-10.2); Carbon Dioxide 26 mmol/L (22-32); Chloride 103 mmol/L (98-107); Estimated Glomerular Filt Rate > 60 mL/min (>60); Glucose 97 mg/dL (70-100); HEMOLYSIS < 15 (0-50); Sodium 138 mmol/L (137-145); Total Protein 6.8 g/dL (6.3-8.2)
[2022-09-20 16:43] LABS: TSH w/ Reflex to FT4 1.23 uIU/mL (0.47-4.68)
[2022-09-22 16:33] LABS: Albumin Globulin Ratio 1.4 (1.0-2.8); Globulin 2.8 g/dL (1.7-4.1)
== END ==
PROVIDERS: PCP Registered Nurse Diabetes Educator; Referring Provider Registered Nurse Diabetes Educator; Visit Provider Registered Nurse Diabetes Educator
DX: E03.9 Hypothyroidism, unspecified (principal); E28.2 Polycystic ovarian syndrome; I10 Essential (primary) hypertension; R73.01 Impaired fasting glucose
CPT/HCPCS: 36415; 80053; 83036; 84443; 85027

== ENCOUNTER → 2022-11-10 10:28 | Outpatient (CLI) | payer OTHER, MEDICAID, SELFPAY ==
[2022-11-10 12:09] LABS: Cholesterol 146 mg/dL (140-199); HDL Cholesterol 42 mg/dL (40-60); LDL Cholesterol Calculated 83 mg/dL (<100); Triglycerides 103 mg/dL (35-150)
== END ==
PROVIDERS: PCP Registered Nurse Diabetes Educator; Referring Provider Registered Nurse Diabetes Educator; Visit Provider Registered Nurse Diabetes Educator
DX: E03.9 Hypothyroidism, unspecified (principal); E28.2 Polycystic ovarian syndrome; I10 Essential (primary) hypertension; R73.01 Impaired fasting glucose
CPT/HCPCS: 36415; 80061

== ENCOUNTER → 2023-05-05 10:36 | Outpatient (CLI) | payer OTHER, SELFPAY ==
[2023-05-05 10:59] LABS: Add Manual Diff / Slide Review NO; Basophils Absolute Auto 100 /uL (0-100); Basophils Percent Auto 0.8 % (0-2); Eosinophils Absolute Auto 400 /uL (0-450); Hematocrit 39.1 % (36-46); Hemoglobin 13.2 g/dL (12.0-16.0); Lymphocytes Absolute Auto 2300 /uL (1100-4500); Lymphocytes Percent Auto 37.3 % (25-40); Mean Corpuscular HGB Conc 33.7 % (30-36); Mean Corpuscular Hemoglobin 30.6 PG (26-34); Monocytes Absolute Auto 400 /uL (0-900); Monocytes Percent Auto 6.6 % (3-14); Neutrophils Absolute Auto 3000 /uL (1500-7000); Neutrophils Percent Auto 49.3 % (50-75); Platelet Count 293 X10^3/uL (150-400); Red Cell Distribution Width 12.6 % (11.6-14.8); White Blood Cell Count 6.2 X10^3/uL (4.5-11.0)
[2023-05-05 11:17] LABS: Alanine Aminotransferase 90 IU/L (<35); Albumin Globulin Ratio 1.5 (1.0-2.8); Alkaline Phosphatase 110 U/L (38-126); Aspartate Aminotransferase 72 IU/L (14-36); BUN Creatinine Ratio 18.3 (6-22); Bilirubin Total 0.4 mg/dL (0.2-1.3); Bilirubin Unconjugated 0.3 mg/dL (0.0-1.1); Blood Urea Nitrogen 11 mg/dL (7-17); Calcium 9.2 mg/dL (8.4-10.2); Carbon Dioxide 27 mmol/L (22-32); Chloride 104 mmol/L (98-107); Estimated Glomerular Filt Rate > 60 mL/min (>60); Globulin 2.7 g/dL (1.7-4.1); Glucose 95 mg/dL (70-100); HEMOLYSIS < 15 (0-50); Potassium 4.5 mmol/L (3.4-5.1); Sodium 136 mmol/L (137-145); Total Protein 6.7 g/dL (6.3-8.2)
[2023-05-05 12:06] LABS: Vitamin D 25 Hydroxy (D3) 45.1 ng/mL (30.0-100.0)
[2023-05-05 12:23] LABS: Folate 4.8 ng/mL (2.76-20.0); Vitamin B12 956 pg/mL (239-931)
[2023-05-12 21:44] LABS: Vitamin B1 178.9 nmol/L (66.5-200.0)
== END ==
PROVIDERS: PCP Registered Nurse Diabetes Educator; Referring Provider Registered Nurse Diabetes Educator; Visit Provider Registered Nurse Diabetes Educator
DX: R74.8 Abnormal levels of other serum enzymes (principal); Z98.84 Bariatric surgery status
CPT/HCPCS: 36415; 80053; 80076; 82306; 82607; 82746; 84425; 85025

== ENCOUNTER → 2023-05-22 14:53 | Outpatient (CLI) | payer OTHER, SELFPAY ==
[2023-05-22 15:43] LABS: HEMOLYSIS < 15 (0-50); Iron 68 ug/dL (37-170)
[2023-05-22 15:54] LABS: Percent Iron Saturation 20 % (15-50); Total Iron Binding Capacity 332 ug/dL (265-497); Transferrin 237 mg/dL (206-381)
[2023-05-22 16:06] LABS: Ferritin 74 ng/mL (6-137)
[2023-05-23 04:11] LABS: HBsAg Screen Negative (Negative); Hepatitis A Antibody IgM Negative (Negative); Hepatitis B Core Antibody IgM Negative (Negative); Hepatitis C Antibody Non Reactive (Non Reactive)
[2023-05-23 06:08] LABS: Ceruloplasmin 25.4 mg/dL (19.0-39.0); Immunoglobulin G, Quantitative 867 mg/dL (586-1602)
[2023-05-23 20:00] LABS: Deamidated Gliadin Ab IgA 7 units (0-19); Deamidated Gliadin Ab IgG 2 units (0-19); Immunoglobulin A,Qn 319 mg/dL (87-352); t-Transglutaminase IgA <2 U/mL (0-3)
[2023-05-24 13:34] LABS: Smooth Muscle Antibody 4 Units (0-19)
[2023-05-25 14:12] LABS: ANA Screen, IFA Negative (.)
[2023-05-30 10:09] LABS: Alpha 1 Antitrypsin 129 mg/dL (100-188); Alpha 1 antitrypsin pheno Rflx Not Indicated (.)
== END ==
PROVIDERS: PCP Registered Nurse Diabetes Educator; Referring Provider Registered Nurse Diabetes Educator; Visit Provider Registered Nurse Diabetes Educator
DX: R74.8 Abnormal levels of other serum enzymes (principal)
CPT/HCPCS: 36415; 80074; 81332; 82103; 82390; 82728; 82784; 83516; 83540; 83550; 86038

== ENCOUNTER 2023-07-18 07:32 | Emergency (ER) | payer OTHER, MEDICAID, SELFPAY ==
[2023-07-18] VITALS (7 sets, daily range): BP systolic 119–166; BP diastolic 68–90; PULSE 72–145; RESP 18–30; TEMP 36.9; O2SAT 98–100; BMI 28.2
--- NOTE | 2023-07-18 07:34 | DI.RAD.S_ITS ---
PROCEDURE: XR CHEST 1V INDICATIONS: SOB TECHNIQUE: One view of the chest was acquired. COMPARISON: Located Within [facility], , XR CHEST 2V, 06/01/2021, 13:34. Located Within [facility], CR, XR CHEST 2V, 04/17/2018, 16:47. FINDINGS: Surgical changes and devices: None. Lungs and pleura: Lungs are clear. No pleural effusions or pneumothorax. Mediastinum: Mediastinal contours appear normal. Heart size is normal. Bones and chest wall: No suspicious bony lesions. Overlying soft tissues appear unremarkable. IMPRESSION: No acute cardiopulmonary process. Dictated by: Alec Yang M.D. on 07/18/2023 at 7:53 Approved by: Alec Yang M.D. on 07/18/2023 at 7:54
--- NOTE | 2023-07-18 07:39 | ED.GENADULT ---
HPI - General Adult General Chief complaint: Shortness of Breath/Dyspnea Stated complaint: cant breathe sick t-4 asthma Time Seen by Provider: 07/18/23 07:34 Source: patient Mode of arrival: Ambulatory Limitations: no limitations History of Present Illness HPI narrative: 37-year-old female. Has a history of asthma. Has been ?sick? for the past 4 days. For the past day or so she has had increasing shortness of breath and a cough. Has used her inhaler at home multiple times for coming here to the ER without improvement. Her symptoms have been worse at night. Does report fevers and the sore throat. No abdominal pain. Chest pain with cough. Nonproductive cough. Related Data Home Medications Medication Instructions Recorded Confirmed acetaminophen 500 mg tablet 500 mg PO 11/14/22 05/22/23 Previous Rx's Medication Instructions Recorded albuterol sulfate 90 mcg/actuation 2 puff inhalation Q6H PRN 01/21/22 aerosol inhaler shortness of breath or wheezing #6.7 grams atenolol 25 mg tablet 25 mg PO DAILY #90 tabs 04/10/23 citalopram 20 mg tablet 20 mg PO DAILY #90 tabs 04/10/23 levothyroxine 50 mcg tablet 50 mcg PO DAILY #90 tabs 04/10/23 albuterol sulfate 90 mcg/actuation 2 puff inhalation Q4-6H PRN 07/18/23 aerosol inhaler shortness of breath or wheezing #8.5 grams benzonatate 100 mg capsule 100 mg PO BID-TID PRN cough #20 07/18/23 caps oseltamivir 75 mg capsule (Tamiflu) 75 mg PO BID 5 days #10 caps 07/18/23 prednisone 20 mg tablet 20 mg PO DAILY 6 days #6 tabs 07/18/23 Allergies Allergy/AdvReac Type Severity Reaction Status Date / Time amoxicillin AdvReac does not Verified 05/22/23 14:02 work Review of Systems Constitutional Constitutional: Reports system reviewed and no additional complaints, except as documented Cardiovascular Cardiovascular: Reports system reviewed and no additional complaints, except as documented Respiratory Respiratory: Reports system reviewed and no additional complaints, except as documented Gastrointestinal Gastrointestinal: Reports system reviewed and no additional complaints, except as documented Genitourinary Genitourinary: Reports system reviewed and no additional complaints, except as documented Integumentary/Breasts Skin/Breast: Reports system reviewed and no additional complaints, except as documented Hematologic/Lymphatic On Anticoagulants: No Patient History Medical History 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) Fatigue Family history of diabetes mellitus Pharyngitis Polycystic ovary syndrome Internal hemorrhoids Morbid obesity with BMI of 45.0-49.9, adult Klwaf-Tiqczraqu-Nbexx (WPW) syndrome Wheezing Diabetes mellitus Near syncope Palpitations Hypertension Inversion sprain of left ankle Endometritis following delivery Spontaneous vaginal delivery Gestational hypertension Acute bronchitis with asthma with acute exacerbation Surgical History History of colonoscopy (~08/17/20) History of Nydia-en-Y gastric bypass History of third molar tooth extraction Status post endometrial ablation (~06/16/21) Status post laparoscopic cholecystectomy Family History Child Autism Father Hypertension Diabetes mellitus Mother Hypertension Gallstones Cancer Diabetes mellitus SLE (systemic lupus erythematosus) Psoriasis Brother Cancer B-cell lymphoma Psoriasis Grandmother Diabetes mellitus Social History marital status: number of children: 2 household members: spouse and children occupational status: employed Smoking Status: Never smoker alcohol intake: never substance use type: does not use Smoking Status: Never smoker alcohol intake frequency: 0-2 drinks per day Substance Use Type: does not use Exam Initial Vital Signs Initial Vital Signs: Vital Signs Pulse Rate 128 H 07/18/23 07:38 Pulse Oximetry 99 07/18/23 07:38 Const General: cooperative and comfortable HENMT Head: normal to inspection and normocephalic Resp Effort & Inspection: no retractions and tachypneic Auscultation: rales, rhonchi and no wheezes Cardio Rate: tachycardic Rhythm: regular rhythm Skin General: no rashes or lesions noted Neuro General: patient alert, patient awake, patient oriented x3 and moves all extremities Extrem General: capillary refill normal Course Orders Ordered: ED Orders 07/18/23 07:34 XR chest 1V Stat 07/18/23 07:38 EKG-12 Lead Stat 07/18/23 07:40 Respiratory Panel (Film Array) Stat Discontinued Medications Albuterol/Ipratropium (Albuterol/Ipratropium 3 Ml Ampul) 3 ml INH NOW ONE Stop: 07/18/23 07:39 Last Admin: 07/18/23 07:41 Dose: 3 ml Documented By: OZZY Albuterol/Ipratropium (Albuterol/Ipratropium 3 Ml Ampul) 3 ml INH NOW ONE Stop: 07/18/23 07:57 Last Admin: 07/18/23 08:00 Dose: 3 ml Documented By: OZZY Prednisone (Prednisone 20 Mg Tablet) 40 mg PO NOW ONE Stop: 07/18/23 07:39 Last Admin: 07/18/23 08:47 Dose: 40 mg Documented By: CTS Vital Signs Vital signs: Vital Signs - 8 hr 07/18/23 07:38 07/18/23 07:39 07/18/23 07:41 Temperature 98.5 F Pulse Rate 128 H 145 H 105 H Respiratory Rate 30 H 20 Blood Pressure 144/88 H Pulse Oximetry 99 100 99 Oxygen Delivery Method Room Air Room Air Oxygen Flow Rate 0 Fraction of Inspired Oxygen 21 07/18/23 08:00 07/18/23 08:00 07/18/23 08:00 Temperature Pulse Rate 117 H 117 H Respiratory Rate 22 19 Blood Pressure 143/73 H Pulse Oximetry 100 100 Oxygen Delivery Method Room Air Oxygen Flow Rate 0 Fraction of Inspired Oxygen 21 07/18/23 08:30 07/18/23 09:00 Temperature Pulse Rate 130 H 126 H Respiratory Rate 25 H Blood Pressure Pulse Oximetry 100 98 Oxygen Delivery Method Oxygen Flow Rate Fraction of Inspired Oxygen Medical Decision Making Lab Data Labs: Lab Results 07/18/23 Range/Units 07:40 Chlamy pneumoniae PCR Not detected (Not Detect) Adenovirus (PCR) Not detected (Not Detect) B.parapertussis DNA PCR Not detected (Not Detecte) Coronavirus OC43 (PCR) Not detected (Not Detect) Coronavirus HKU1 (PCR) Not detected (Not Detect) Coronavirus 229E (PCR) Not detected (Not Detect) SARS-CoV-2 (PCR) Not detected (Not Detecte) Coronavirus NL63 (PCR) Not detected (Not Detect) Human Metapneumovir PCR Not detected (Not Detect) Influ A (H1N1 Seas) PCR Detected H (Not Detect) Influenza Type B (PCR) Not detected (Not Detect) M. pneumoniae (PCR) Not detected (Not Detect) Parainfluenza 1 (PCR) Not detected (Not Detect) Parainfluenza 2 (PCR) Not detected (Not Detect) Parainfluenza 3 (PCR) Not detected (Not Detect) Parainfluenza 4 (PCR) Not detected (Not Detect) RSV (PCR) Not detected (Not Detect) Entero/Rhino (PCR) Not detected (Not Detect) Imaging Data Chest x-ray: Radiologist's Impression: PROCEDURE: XR CHEST 1V INDICATIONS: SOB TECHNIQUE: One view of the chest was acquired. COMPARISON: Merged With [facility], , XR CHEST 2V, 06/01/2021, 13:34. Merged With [facility], CR, XR CHEST 2V, 04/17/2018, 16:47. FINDINGS: Surgical changes and devices: None. Lungs and pleura: Lungs are clear. No pleural effusions or pneumothorax. Mediastinum: Mediastinal contours appear normal. Heart size is normal. Bones and chest wall: No suspicious bony lesions. Overlying soft tissues appear unremarkable. IMPRESSION: No acute cardiopulmonary process. ECG Data Attestation: I personally reviewed and interpreted this ECG as follows: Interpretation: Sinus tachycardia Ventricular rate 115 Normal axis Normal QRS Nonspecific ST T wave changes MDM Narrative Medical decision making narrative: Patient states she feels better after the nebulizers here in the ER. He is afebrile. Chest x-ray is unremarkable. She is tachycardic but I suspect that this is because of the albuterol in her illness. She is influenza A positive. I discussed with her the risks and benefits of Tamiflu. I informed her that the Tamiflu most likely will not improve her symptoms given how long that she is had it but she would like to take the medicine anyway. Will send home with steroids as well. Other symptomatic treatment. She was given return precautions. She expressed understanding and agreement. Discharge Plan Departure Patient Disposition: Home Clinical Impression: Influenza A, Asthma Instructions: DI for Influenza -- Adult Activity Restrictions/Additional Instructions: I do recommend that you take the medications as directed. Continue to use your albuterol as needed as well. Contact your primary doctor for a follow-up. Return to the emergency department for new or worsening symptoms. Prescriptions: New prednisone 20 mg tablet 20 mg PO DAILY 6 Days Qty: 6 0RF benzonatate 100 mg capsule 100 mg PO BID-TID PRN (Reason: cough) Qty: 20 0RF albuterol sulfate 90 mcg/actuation HFA aerosol inhaler 2 puff inhalation Q4-6H PRN (Reason: shortness of breath or wheezing) Qty: 8.5 0RF oseltamivir [Tamiflu] 75 mg capsule 75 mg PO BID 5 Days Qty: 10 0RF No Action albuterol sulfate 90 mcg/actuation HFA aerosol inhaler 2 puff inhalation Q6H PRN (Reason: shortness of breath or wheezing) Qty: 6.7 0RF atenolol 25 mg tablet 25 mg PO DAILY Qty: 90 1RF levothyroxine 50 mcg tablet 50 mcg PO DAILY Qty: 90 1RF citalopram 20 mg tablet 20 mg PO DAILY Qty: 90 0RF acetaminophen 500 mg tablet 500 mg PO Referrals: Gage Martinez ARNP [Primary Care Provider] - Stand Alone Forms: Patient Portal/API
[2023-07-18] MEDS: ALBUTEROL/IPRATROPIUM 3 ML AMPUL INH ×2 (07:41→08:00)
--- NOTE | 2023-07-18 08:33 | RT ---
0809, the pt states improvement in her shortness of breath post breathing treatments.
[2023-07-18 08:46] LABS: Adenovirus Not Detected (Not Detect); B. parapertussis Not Detected (Not Detecte); Bordetella pertussis Not Detected (Not Detect); Chlamydophila pneumoniae Not Detected (Not Detect); Coronavirus 229E Not Detected (Not Detect); Coronavirus HKU1 Not Detected (Not Detect); Coronavirus NL 63 Not Detected (Not Detect); Coronavirus OC43 Not Detected (Not Detect); Human Metapneumovirus Not Detected (Not Detect); Human Rhinovirus/Enterovirus Not Detected (Not Detect); Influenza A H1-2009 Detected (Not Detect); Influenza B Not Detected (Not Detect); Mycoplasma pneumoniae Not Detected (Not Detect); Parainfluenza Virus 1 Not Detected (Not Detect); Parainfluenza Virus 2 Not Detected (Not Detect); Parainfluenza Virus 3 Not Detected (Not Detect); Parainfluenza Virus 4 Not Detected (Not Detect); Respiratory Syncytial Virus Not Detected (Not Detect); SARS- CoV-2 Not Detected (Not Detecte)
[2023-07-18] MEDS: predniSONE 20 MG TABLET 40 MG PO (08:47)
== END 2023-07-18 09:48 | disposition home or self-care (01) ==
PROVIDERS: Emergency Provider Emergency Medicine; PCP Registered Nurse Diabetes Educator
DX: J09.X2 Influenza due to identified novel influenza A virus with other respiratory manifestations (principal); J45.909 Unspecified asthma, uncomplicated; R05.9 Cough, unspecified; Z20.822 Contact with and (suspected) exposure to COVID-19
CPT/HCPCS: 71045; 87633; 93005; 93010; 99284

== ENCOUNTER → 2024-06-20 10:50 | Outpatient (CLI) | payer BC, OTHER, SELFPAY ==
--- NOTE | 2024-06-20 10:52 | DI.RAD.S_ITS ---
PROCEDURE: XR HIP W PEL IF DONE AIMEE 3V INDICATIONS: eval hip and SI joint pain bilateral TECHNIQUE: AP pelvis with lateral views of the bilateral hips. Three views. COMPARISON: None. FINDINGS: Bones: No fractures or dislocations. Pelvic ring appears intact. No suspicious bony lesions. Soft tissues: The visualized bowel gas pattern is normal. No suspicious soft tissue calcifications. IMPRESSION: No radiographic evidence of abnormality. If symptoms persist or worsen, or there is high clinical suspicion of pelvic/hip abnormality, CT or MRI could be performed. Dictated by: Blayne Penny M.D. on 06/23/2024 at 10:31 Approved by: Blayne Penny M.D. on 06/23/2024 at 10:34
--- NOTE | 2024-06-20 10:52 | DI.RAD.S_ITS ---
PROCEDURE: XR SACROILIAC JOINT MIN 3V INDICATIONS: eval hip and SI joint pain bilateral TECHNIQUE: 3 views of the sacroiliac joints were acquired. COMPARISON: None. FINDINGS / IMPRESSION: On one image, the right oblique view, possible 3 cm circumscribed lytic lesion or area of osteolysis at the right upper sacrum adjacent to the sacroiliac joint versus artifact. MRI may be useful for further evaluation. Dictated by: Blayne Penny M.D. on 06/23/2024 at 11:03 Approved by: Blayne Penny M.D. on 06/23/2024 at 11:08
[2024-06-20 12:24] LABS: Add Manual Diff / Slide Review NO; Basophils Absolute Auto 0 /uL (0-100); Basophils Percent Auto 0.8 % (0-2); Eosinophils Absolute Auto 300 /uL (0-450); Eosinophils Percent Auto 6.4 % (2-4); Hematocrit 40.2 % (36-46); Hemoglobin 13.2 g/dL (12.0-16.0); Lymphocytes Absolute Auto 2100 /uL (1100-4500); Lymphocytes Percent Auto 40.4 % (25-40); Mean Corpuscular Hemoglobin 30.2 PG (26-34); Mean Corpuscular Volume 91.6 fL (80-100); Monocytes Absolute Auto 300 /uL (0-900); Monocytes Percent Auto 5.8 % (3-14); Neutrophils Absolute Auto 2400 /uL (1500-7000); Neutrophils Percent Auto 46.6 % (50-75); Platelet Count 245 X10^3/uL (150-400); Red Blood Cell Count 4.39 X10^6/uL (4.0-5.2); Red Cell Distribution Width 13.1 % (11.6-14.8); White Blood Cell Count 5.2 X10^3/uL (4.5-11.0)
[2024-06-20 12:47] LABS: Hemoglobin A1C% w Est Avg Glu 5.2 % (4.0-6.0)
[2024-06-20 12:49] LABS: Alanine Aminotransferase 20 IU/L (<35); Albumin Globulin Ratio 1.5 (1.0-2.8); Alkaline Phosphatase 66 U/L (38-126); Aspartate Aminotransferase 25 IU/L (14-36); BUN Creatinine Ratio 19.4 (6-22); Bilirubin Total 0.5 mg/dL (0.2-1.3); Blood Urea Nitrogen 13 mg/dL (7-17); C-Reactive Protein Quant < 0.5 mg/dL (<1.0); Calcium 9.2 mg/dL (8.4-10.2); Carbon Dioxide 23 mmol/L (22-32); Chloride 106 mmol/L (98-107); Cholesterol 153 mg/dL (140-199); Estimated Glomerular Filt Rate > 60 mL/min (>60); Globulin 2.6 g/dL (1.7-4.1); Glucose 93 mg/dL (70-100); HDL Cholesterol 59 mg/dL (40-60); HEMOLYSIS < 15 (0-50); LDL Cholesterol Calculated 78 mg/dL (<100); Potassium 4.4 mmol/L (3.4-5.1); Sodium 136 mmol/L (137-145); Total Protein 6.6 g/dL (6.3-8.2); Triglycerides 79 mg/dL (35-150)
[2024-06-20 12:55] LABS: Rheumatoid Factor < 8.6 IU/mL (<12.0)
[2024-06-20 13:14] LABS: TSH w/ Reflex to FT4 2.17 uIU/mL (0.47-4.68)
[2024-06-20 13:44] LABS: Erythrocyte Sedimentation Rate 3 MM/HR (0-20)
[2024-06-23 14:13] LABS: CCP Antibodies IgG/IgA 3 units (0-19)
== END ==
LOC: LAB 10:52
PROVIDERS: PCP Registered Nurse Diabetes Educator; Referring Provider Registered Nurse Diabetes Educator; Visit Provider Registered Nurse Diabetes Educator
DX: M53.3 Sacrococcygeal disorders, not elsewhere classified (principal); G89.29 Other chronic pain; M25.551 Pain in right hip; M25.552 Pain in left hip; E03.9 Hypothyroidism, unspecified; R73.01 Impaired fasting glucose; I10 Essential (primary) hypertension; M25.50 Pain in unspecified joint; M79.89 Other specified soft tissue disorders
CPT/HCPCS: 36415; 72202; 73522; 80053; 80061; 81374; 83036; 84443; 85025; 85651; 86038; 86140; 86200; 86430

== ENCOUNTER → 2024-07-04 08:12 | Outpatient (CLI) | payer BC, OTHER, SELFPAY ==
--- NOTE | 2024-07-04 08:13 | DI.MRI.S_ITS ---
PROCEDURE: MR PELIS WO/W CON INDICATIONS: lytic lesion or area of osteolysis at the right upper sacrum TECHNIQUE: Noncontrast axial and oblique coronal T1 spin echo and STIR through the sacroiliac joints. Opposed phase gradient echo and diffusion-weighted imaging were also performed through the bony pelvis. COMPARISON: [facility], CR, XR HIP W PEL IF DONE AIMEE 3TO4V, 06/20/2024, 10:54. [facility], CR, XR SACROILIAC JOINT MIN 3V, 06/20/2024, 10:54. FINDINGS: Image quality: Excellent. Bones: Mild degenerative changes in the sacroiliac joints bilaterally. No adjacent bone marrow edema to suggest active sacroiliitis. No bony ankylosis. No suspicious marrow space occupying lesions. Specifically normal bone marrow signal is seen in the right sacrum. Prior radiographic finding was likely artifactual. No abnormal bony enhancement. Mild facet hypertrophy at the lower lumbar spine. Soft tissues: No presacral masses. Rectum appears normal in caliber and wall thickness. Small amount of free fluid in the pelvis is most likely physiologic in a young woman. No enhancing soft tissue mass. IMPRESSION: 1. No suspicious osseous mass. Prior radiographic finding was likely artifactual. 2. Mild bilateral sacroiliac osteoarthrosis. No signs of sacroiliitis. Approved by: Andres Michel M.D. on 07/04/2024 at 11:59
== END ==
PROVIDERS: PCP Registered Nurse Diabetes Educator; Referring Provider Registered Nurse Diabetes Educator; Visit Provider Registered Nurse Diabetes Educator
DX: M53.3 Sacrococcygeal disorders, not elsewhere classified (principal); M25.551 Pain in right hip; M25.552 Pain in left hip; M47.818 Spondylosis without myelopathy or radiculopathy, sacral and sacrococcygeal region; G89.29 Other chronic pain
CPT/HCPCS: 72197; A9579

== ENCOUNTER → 2025-02-24 16:59 | Outpatient (CLI) | payer BC, OTHER, SELFPAY ==
--- NOTE | 2025-02-24 17:06 | DI.RAD.S_ITS ---
PROCEDURE: XR SACRUM COCCYX MIN 2V INDICATIONS: fall on tailbone 4 days ago TECHNIQUE: 3 views of the sacrum and coccyx acquired. COMPARISON: None. FINDINGS: Bones: No fractures or dislocations. No suspicious bony lesions. Soft tissues: Visualized bowel gas pattern is normal. No suspicious soft tissue densities. IMPRESSION: No definite acute fracture seen. Dictated by: Ronal Akins M.D. on 02/24/2025 at 19:22 Approved by: Ronal Akins M.D. on 02/24/2025 at 19:23
== END ==
PROVIDERS: PCP Registered Nurse Diabetes Educator; Referring Provider Registered Nurse Diabetes Educator; Visit Provider Physician Assistant
DX: M53.3 Sacrococcygeal disorders, not elsewhere classified (principal)
CPT/HCPCS: 72220

== ENCOUNTER → 2025-09-01 09:24 | Outpatient (CLI) | payer BC, OTHER, SELFPAY ==
[2025-09-01 10:28] LABS: Hematocrit 39.4 % (36-46); Hemoglobin 13.3 g/dL (12.0-16.0); Mean Corpuscular HGB Conc 33.6 % (30-36); Mean Corpuscular Hemoglobin 30.3 PG (26-34); Mean Corpuscular Volume 90.1 fL (80-100); Platelet Count 243 X10^3/uL (150-400)
[2025-09-01 10:40] LABS: Hemoglobin A1C% w Est Avg Glu 5.1 % (4.0-6.0)
[2025-09-01 10:52] LABS: HEMOLYSIS < 15 (0-50); Iron 153 ug/dL (37-170)
[2025-09-01 10:57] LABS: Alanine Aminotransferase 46 IU/L (<35); Albumin 4.1 g/dL (3.5-5.0); Albumin Globulin Ratio 1.5 (1.0-2.8); Alkaline Phosphatase 68 U/L (38-126); Blood Urea Nitrogen 17 mg/dL (7-17); Calcium 9.1 mg/dL (8.4-10.2); Carbon Dioxide 27 mmol/L (22-32); Chloride 106 mmol/L (98-107); Cholesterol 158 mg/dL (140-199); Estimated Glomerular Filt Rate > 60 mL/min (>60); Globulin 2.8 g/dL (1.7-4.1); Glucose 93 mg/dL (70-99); HDL Cholesterol 65 mg/dL (40-60); Magnesium 1.9 mg/dL (1.6-2.3); Potassium 4.7 mmol/L (3.4-5.1); Sodium 140 mmol/L (137-145); Total Protein 6.9 g/dL (6.3-8.2); Triglycerides 89 mg/dL (35-150)
[2025-09-01 11:02] LABS: Percent Iron Saturation 42 % (15-50); Total Iron Binding Capacity 368 ug/dL (265-497); Transferrin 303 mg/dL (206-381)
[2025-09-01 11:11] LABS: Vitamin D 25 Hydroxy (D3) 24.8 ng/mL (30.0-100.0)
[2025-09-01 11:23] LABS: TSH w/ Reflex to FT4 2.38 uIU/mL (0.47-4.68)
[2025-09-01 11:34] LABS: Ferritin 23 ng/mL (6-137)
[2025-09-01 11:42] LABS: Vitamin B12 339 pg/mL (239-931)
== END ==
PROVIDERS: PCP Registered Nurse Diabetes Educator; Referring Provider Registered Nurse Diabetes Educator; Visit Provider Registered Nurse Diabetes Educator
DX: Z98.84 Bariatric surgery status (principal); I10 Essential (primary) hypertension; E03.9 Hypothyroidism, unspecified; R53.83 Other fatigue; D50.0 Iron deficiency anemia secondary to blood loss (chronic); Z68.42 Body mass index [BMI] 45.0-49.9, adult; E66.01 Morbid (severe) obesity due to excess calories; E88.810 Metabolic syndrome
CPT/HCPCS: 36415; 80053; 80061; 82306; 82607; 82728; 83036; 83540; 83550; 83735; 84443; 85027